=== PATIENT | female | born 1935 | race Caucasian/White ===

== ENCOUNTER 2017-02-16 18:14 | Inpatient (IN) ==
[2017-02-16] MEDS ORDERED: *HR* HYDROmorphone (PF) 1 MG/ML SYRINGE IVP ONE (18:20)
[2017-02-16] MEDS ORDERED: Ondansetron 4 MG/2 ML VIAL IVP ONE ×2 (18:20→20:29)
--- NOTE | 2017-02-16 18:29 | Emergency Department Note ---
Disposition Clinical Impression: Fracture of femur Qualifiers: Encounter type: initial encounter Femur location: shaft Fracture type: closed Fracture morphology: transverse Fracture alignment: displaced Laterality: right Qualified Code(s): S72.321A - Displaced transverse fracture of shaft of right femur, initial encounter for closed fracture Distal radius fracture, left Qualifiers: Encounter type: initial encounter Fracture type: closed Fracture morphology: other fracture Qualified Code(s): S52.592A - Other fractures of lower end of left radius, initial encounter for closed fracture Disposition: Admitted As Inpatient Condition: Good Forms: ED Satisfaction Letter Fall HPI - General Chief Complaint: ED Extremity Injury, Lower Stated Complaint: R leg Pain Time Seen by Provider: 02/16/17 18:20 Source: patient, EMS Mode of arrival: EMS Limitations: no limitations Nursing Notes Reviewed: Yes Vital Signs Reviewed: Yes - History of Present Illness Pt Subjective Complaint: fall 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 Denies: headache, neck pain, numbness - Related Data Home Medications Medication Instructions Recorded Confirmed Atenolol 12/14/16 12/14/16 Folic Acid 12/14/16 Methotrexate 12/14/16 Prednisone 12/14/16 12/14/16 Previous Rx's Medication Instructions Recorded Benzonatate [Tessalon] 200 mg PO TID PRN #30 capsule 12/14/16 DiphenhydraMINE [Benadryl] 25 mg PO Q8HR PRN #20 capsule 12/14/16 Doxycycline 100 mg PO BID #14 capsule 12/14/16 GuaiFENesin ER [Mucinex] 600 mg PO BID #20 tbbp.12hr 12/14/16 Doxycycline 100 mg PO BID #14 capsule 01/25/17 Allergies Allergy/AdvReac Type Severity Reaction Status Date / Time aspirin [ASA] Allergy See Verified 02/16/17 18:22 Comments Penicillins [PCN] Allergy See Verified 02/16/17 18:22 Comments All systems ED: reviewed and negative except as stated. Constitutional: Denies: fever Cardiovascular: Denies: chest pain Gastrointestinal: Denies: nausea, vomiting Fall PMH - Past Medical History Medical history: Reports: arthritis Surgical history: Reports: non-contributory Psychiatric history: Reports: no psych history SHEAR SCRAPMAN history: Reports: no SHEAR SCRAPMAN history - Social History Smoking Status: Never smoker Alcohol use: Reports: none Drug use: Reports: none Physical Exam - General Limitations: no limitations General appearance: in distress - Head Head exam: atraumatic, normocephalic, normal inspection - Eye Eye exam: Present: normal appearance, PERRL, EOMI - ENT ENT exam: normal exam, normal oropharynx, mucous membranes moist - Neck Neck exam: Present: normal inspection, full ROM, trachea midline - Chest Chest inspection: Present: normal inspection, symmetric chest wall rise - Respiratory Respiratory exam: Present: normal lung sounds bilaterally - Cardiovascular Cardiovascular exam: Present: regular rate, normal rhythm, normal heart sounds - Abdominal Exam Abdominal exam: Present: soft, Non-Tender. Absent: tenderness, distention, guarding, rebound, rigidity - Expanded Upper Extremity Exam Forearm/Wrist exam: Present: tenderness, swelling (distal left) - Expanded Lower Extremity Exam Upper leg exam: Present: deformity (obvious distal femur deformity) - Neurological Exam Neurological exam: Present: alert, oriented X3 - Psychiatric Psychiatric exam: Present: normal affect, normal mood - Skin Skin exam: Present: warm, dry, intact, normal color Course - Consultations Consultation #1: dr. ro will consult, right knee immobilizer admit to hospitalist service Time: 19:43 Vital Signs Pulse Rate 85 02/16/17 18:15 Respiratory Rate 20 02/16/17 18:15 Blood Pressure 178/109 02/16/17 18:15 O2 Sat by Pulse Oximetry 100 02/16/17 18:15 Temperature 98.6 F 02/16/17 18:18 Pulse Rate 77 02/16/17 19:01 Respiratory Rate 20 02/16/17 19:01 Blood Pressure 138/63 02/16/17 19:01 O2 Sat by Pulse Oximetry 99 02/16/17 19:01 Oxygen Delivery Oxygen Delivery Room Air Fall - Differential Diagnosis Likely: syncope, traumatic injury - Medical Records Medical records reviewed: Yes I reviewed the patient's medical records. - Lab Data Lab results reviewed: Yes I reviewed the patient's lab results. Result diagrams: 02/16/17 18:19 02/16/17 18:19 Lab Results 0502/16/17 02/16/17 Range/Units 18:19 18:19 18:19 WBC 8.4 (4.3-11.1) K/mcL RBC 3.76 L (3.82-4.97) M/mcL Hgb 11.9 (11.5-15.4) g/dL Hct 35.8 (35.3-44.9) % MCV 95.2 (83.0-100.0) fL MCH 31.6 (28.0-33.3) pg MCHC 33.2 (31.6-35.5) g/dL RDW 13.6 (11.5-14.5) % Plt Count 255 (140-400) K/mcL MPV 9.3 L (9.4-12.4) fL Immature Gran % 0.5 (0-4) % Seg Neutrophils % 54.4 % Lymphocytes % 34.3 % Monocytes % 8.9 % Eosinophils % 1.5 % Basophils % 0.4 % Neutrophils # 4.6 (1.6-8.9) K/mcL Lymphocytes # 2.9 (0.6-4.6) K/mcL Monocytes # 0.8 (0.0-1.3) K/mcL Eosinophils # 0.1 (0.0-0.6) K/mcL Basophils # 0.0 (0.0-0.2) K/mcL PT 10.6 (9.4-12.1) Seconds INR 1.0 Sodium 140 (136-145) mEq/L Potassium 3.5 (3.5-4.5) mEq/L Chloride 103 (98-109) mEq/L Carbon Dioxide 24 (19-29) mEq/L BUN 22 H (7-20) mg/dL Creatinine 0.96 (0.57-1.11) mg/dL Est GFR ( Amer) > 60 (> 60) Est GFR (Non-Af Amer) 56 L (> 60) BUN/Creatinine Ratio 23 (6-26) Glucose 106 H (70-99) mg/dL Calculated Osmolality 294 (280-300) Calcium 9.3 (8.6-10.8) mg/dL Blood Type Antibody Screen 02/16/17 Range/Units 18:19 WBC (4.3-11.1) K/mcL RBC (3.82-4.97) M/mcL Hgb (11.5-15.4) g/dL Hct (35.3-44.9) % MCV (83.0-100.0) fL MCH (28.0-33.3) pg MCHC (31.6-35.5) g/dL RDW (11.5-14.5) % Plt Count (140-400) K/mcL MPV (9.4-12.4) fL Immature Gran % (0-4) % Seg Neutrophils % % Lymphocytes % % Monocytes % % Eosinophils % % Basophils % % Neutrophils # (1.6-8.9) K/mcL Lymphocytes # (0.6-4.6) K/mcL Monocytes # (0.0-1.3) K/mcL Eosinophils # (0.0-0.6) K/mcL Basophils # (0.0-0.2) K/mcL PT (9.4-12.1) Seconds INR Sodium (136-145) mEq/L Potassium (3.5-4.5) mEq/L Chloride (98-109) mEq/L Carbon Dioxide (19-29) mEq/L BUN (7-20) mg/dL Creatinine (0.57-1.11) mg/dL Est GFR ( Amer) (> 60) Est GFR (Non-Af Amer) (> 60) BUN/Creatinine Ratio (6-26) Glucose (70-99) mg/dL Calculated Osmolality (280-300) Calcium (8.6-10.8) mg/dL Blood Type AB POSITIVE Antibody Screen NEGATIVE - Radiology Data Radiology results reviewed: Yes I reviewed the patient's radiology results.
[2017-02-16] MEDS ORDERED: *HR* FentaNYL (PF) 100 MCG/2 ML VIAL IVP ONE ×2 (18:39→20:29)
[2017-02-16 18:45] LABS: Basophils % 0.4 %; Eosinophils # 0.1 K/mcL (0.0-0.6); Eosinophils % 1.5 %; Hematocrit 35.8 % (35.3-44.9); Hemoglobin 11.9 g/dL (11.5-15.4); Immature Granulocytes % 0.5 % (0-4); Lymphocytes # 2.9 K/mcL (0.6-4.6); Lymphocytes % 34.3 %; Mean Corpuscular HGB Conc 33.2 g/dL (31.6-35.5); Mean Corpuscular Hemoglobin 31.6 pg (28.0-33.3); Mean Corpuscular Volume 95.2 fL (83.0-100.0); Mean Platelet Volume 9.3 fL (9.4-12.4); Monocytes # 0.8 K/mcL (0.0-1.3); Monocytes % 8.9 %; Neutrophils # 4.6 K/mcL (1.6-8.9); Platelet Count 255 K/mcL (140-400); Red Blood Count 3.76 M/mcL (3.82-4.97); Red Cell Distribution Width 13.6 % (11.5-14.5); Segmented Neutrophils % 54.4 %
[2017-02-16 18:48] LABS: Prothrombin Time 10.6 Seconds (9.4-12.1)
[2017-02-16 18:50] LABS: BUN/Creatinine Ratio 23 (6-26); Blood Urea Nitrogen 22 mg/dL (7-20); Calcium 9.3 mg/dL (8.6-10.8); Carbon Dioxide 24 mEq/L (19-29); Chloride 103 mEq/L (98-109); Glucose 106 mg/dL (70-99); Osmolality,Calculated 294 (280-300); Potassium 3.5 mEq/L (3.5-4.5); Sodium 140 mEq/L (136-145); eGFR For African Americans > 60 (> 60); eGFR For Non-African Americans 56 (> 60)
--- NOTE | 2017-02-16 20:24 | Orthopedic Consult Note ---
Date of Encounter: 02/17/17 Time of Encounter: 20:21 Assessment and Plan (1) Fracture of femur Current Visit: Yes Status: Acute Plan for surgery tomorrow with for Right femur nail fixation. NPO after midnight. Non-weightbear. Awaiting medical clearance. INR 1.0. Qualifiers: Encounter type: initial encounter Femur location: shaft Fracture type: closed Fracture morphology: transverse Fracture alignment: displaced Laterality: right Qualified Code(s): S72.321A - Displaced transverse fracture of shaft of right femur, initial encounter for closed fracture (2) Distal radius fracture, left Current Visit: Yes Status: Acute Place into sugar tong splint for immobilization. ICE and elevate. Ok to perform finger range of motion. Plan to have surgery tomorrow with for surgical fixation. Qualifiers: Encounter type: initial encounter Fracture type: closed Fracture morphology: other fracture Qualified Code(s): S52.592A - Other fractures of lower end of left radius, initial encounter for closed fracture History of Present Illness Chief complaint: Fall HPI: Ms. Taylor is a 81 year old female, sustained a mechanical fall today, unwitnessed at home. Fell onto her right side, causing a right displaced femur fracture, and a left distal radius fracture. She has a history of a right TKR. She has RA, on methotrexate and prednisone. Her pain is in her right leg, throbbing, burning pain. Pain radiates into lower leg. Unable to weight bear. She is in a immobilizer currently. She denies any pain in her left forearm, she is currently in a splint. She admits to have previous fracture in her left wrist last year. She denies N/T or radiation of pain. She is able to move her digits without restriction. Denies LOC or syncope. Denies N/T Past Med Surg Social Fam HX - Past Medical History Medical history: arthritis Psychiatric history: no psych history - Past Surgical History Surgical History: non-contributory - Social History Smoking Status: Never smoker Smokeless Tobacco Status: No Alcohol use: none Drug use: none Medications and Allergies Acetaminophen [Tylenol] 500 mg PO Q6HR PRN 02/16/17 [History] Ascorbate Calcium [Vitamin C] 500 mg PO DAILY 02/16/17 [History] Atenolol [Tenormin] 25 mg PO DAILY 02/16/17 [History] Cholecalciferol (D-3) [Vitamin D] 1,000 unit PO DAILY 02/16/17 [History] Folic Acid 1 mg PO DAILY 02/16/17 [History] Methotrexate [Otrexup] 20 mg PO WE 02/16/17 [History] predniSONE [PredniSONE] 5 mg PO BID 02/16/17 [History] Allergies Penicillins [PCN] Allergy (Unknown, Verified 02/16/17 20:51) See Comments Patient unsure of reaction- aspirin [ASA] Adverse Reaction (Unknown, Verified 02/16/17 20:51) Gastrointestinal Upset acetaminophen [From [place]] Adverse Reaction (Verified 02/16/17 20:51) Gastrointestinal Upset hydrocodone [From [place]] Adverse Reaction (Verified 02/16/17 20:51) Gastrointestinal Upset All Systems Reviewed: A 10-system review of systems was performed and is negative for pertinent findings except as documented above in the HPI. - Constitutional Constitutional: as per HPI, no fever(s), no frequent falls, no weakness - Cardiovascular Cardiovascular: no chest pain, no edema, no syncope - Respiratory Respiratory: no cough, no dyspnea, no dyspnea on exertion - Musculoskeletal Musculoskeletal: as per HPI, limited range of motion, radiating pain into limb, no abnormal gait, no joint swelling, no muscle weakness, no neck pain, no numbness, no tingling Physical Exam - Constitutional Vitals: Temp Pulse Resp BP Pulse Ox 98.6 F 84 18 151/79 92 02/16/17 18:18 02/16/17 20:12 02/16/17 20:12 02/16/17 20:12 02/16/17 20:12 - Fracture right femur Location of fracture: Right Femur - mid-shaft, proximal to TKR Appearance: swelling Compartments: soft Distal extremity neurovascularly intact: Yes Proximal joint involvement: No Distal joint involvement: No left arm Appearance: normal, swelling Compartments: soft Distal extremity neurovascularly intact: Yes Proximal joint involvement: No Distal joint involvement: No Results - Labs Result Diagrams: 02/17/17 04:10 02/17/17 04:10 Labs: Abnormal lab results RBC 3.76 M/mcL (3.82-4.97) L 02/16/17 18:19 MPV 9.3 fL (9.4-12.4) L 02/16/17 18:19 BUN 22 mg/dL (7-20) H 02/16/17 18:19 Est GFR (Non-Af Amer) 56 (> 60) L 02/16/17 18:19 Glucose 106 mg/dL (70-99) H 02/16/17 18:19 H & H 02/16/17 Range/Units 18:19 Hgb 11.9 (11.5-15.4) g/dL Hct 35.8 (35.3-44.9) % All other labs normal. XR/XR femur RT IMPRESSION: Angulated overriding right mid femoral shaft fracture. XR/XR forearm LT IMPRESSION: 1. Acute, minimally displaced distal 3rd left radial shaft fracture. 2. Associated dislocation of the distal radioulnar joint. 3. Deformity of the distal left radius is most consistent with a remote fracture. - Diagnostic results Wrist/Hand x-ray: report reviewed, image reviewed Hip x-ray: report reviewed, image reviewed Knee x-ray: report reviewed, image reviewed Consult Discharge Plan - Plan
[2017-02-16] MEDS ORDERED: *HR* HYDROmorphone 2 MG/ML SYRINGE IVP ONE (21:46)
[2017-02-16] MEDS ORDERED: Naloxone 0.4 MG/ML INJ IVP PRN (22:18)
[2017-02-16] MEDS ORDERED: *HR* Morphine 2 MG/ML SYRINGE IVP PRN (22:23)
--- NOTE | 2017-02-16 22:26 | Internal Med History&Physical ---
Date of Encounter: 02/16/17 Time of Encounter: 22:00 Assessment and Plan (1) Fracture of femur Current visit: Yes Status: Acute Pain relief. Orthopedic surgeon consulted and is expected to go for nailing tomorrow. Bed rest. NPO after midnight Qualifiers: Encounter type: initial encounter Femur location: shaft Fracture type: closed Fracture morphology: transverse Fracture alignment: displaced Laterality: right Qualified Code(s): S72.321A - Displaced transverse fracture of shaft of right femur, initial encounter for closed fracture (2) Distal radius fracture, left Current visit: Yes Status: Acute Sugar tong splint for immobilization. Orthopedic consult Qualifiers: Encounter type: initial encounter Fracture type: closed Fracture morphology: other fracture Qualified Code(s): S52.592A - Other fractures of lower end of left radius, initial encounter for closed fracture (3) Rheumatoid arthritis Current visit: Yes Status: Chronic Continue home medications Qualifiers: Rheumatoid arthritis location: unspecified site Rheumatoid factor presence : unspecified presence Qualified Code(s): M06.9 - Rheumatoid arthritis, unspecified (4) Lung crackles Current visit: Yes Status: Acute Suspect it is likely due to pulmonary fibrosis, in the context of rheumatoid arthritis. Will check BNP (no peripheral edema noted). (pt had pulmonary function tests done earlier this year with Dr Morris). Will obtain CXR. Internal Medicine - H&P: HPI Chief complaint: Fall; right thigh pain Admitted From: Emergency Dept Plans for Post Hospital Care: Transfer [facility] Facility History of present illness: Ms. Taylor is a 81 year old female with past medical history significant for rheumatoid arthritis, reports problems with her balance and fell down at home. She denies dizziness, chest pain, shortness of breath, headache, loss of consciousness associated with the fall. She could not get up and had to crawl to the phone. She reports severe pain in the right thigh. pain is 9-10/10, sharp, non-radiating and worse with movement. She was evaluated in the emergency department and was noted to have right femur fracture. She also has a left radius fracture. She was seen by ER / orthopedic surgeon and admitted to the hospitalist service for medical co-management. She is expected to go for right femur nail fixation tomorrow. She is placed on sugar tong splint for immobilization of the left forearm. Past Med Surg Social Fam HX - Past Medical History Medical history: arthritis, osteoporosis, RA Psychiatric history: no psych history - Past Surgical History Surgical History: cataract, hysterectomy, knee replacement - Social History Smoking Status: Never smoker Smokeless Tobacco Status: No Alcohol use: none Drug use: none - Additional Family History Additional family history: Family history is reviewed and non-contributory to current admission Internal Medicine - H&P: Meds Acetaminophen [Tylenol] 500 mg PO Q6HR PRN 02/16/17 [History] Ascorbate Calcium [Vitamin C] 500 mg PO DAILY 02/16/17 [History] Atenolol [Tenormin] 25 mg PO DAILY 02/16/17 [History] Cholecalciferol (D-3) [Vitamin D] 1,000 unit PO DAILY 02/16/17 [History] Folic Acid 1 mg PO DAILY 02/16/17 [History] Methotrexate [Otrexup] 20 mg PO WE 02/16/17 [History] predniSONE [PredniSONE] 5 mg PO BID 02/16/17 [History] Allergies Penicillins [PCN] Allergy (Unknown, Verified 02/16/17 20:51) See Comments Patient unsure of reaction- aspirin [ASA] Adverse Reaction (Unknown, Verified 02/16/17 20:51) Gastrointestinal Upset acetaminophen [From [place]] Adverse Reaction (Verified 02/16/17 20:51) Gastrointestinal Upset hydrocodone [From [place]] Adverse Reaction (Verified 02/16/17 20:51) Gastrointestinal Upset All Systems PM: A 10-system review of systems was performed and is negative for pertinent findings except as documented above in the HPI. - Constitutional Vitals: Temp Pulse Resp BP Pulse Ox 97.0 F L 75 16 166/92 97 02/16/17 21:36 02/16/17 21:36 02/16/17 21:36 02/16/17 21:36 02/16/17 21:36 Exam: General: In mild - moderate distress at the time of my evaluation HEENT: Oral mucosa is moist. No conjunctival palor or scleral icterus Neck: No obvious neck swellings Lungs: Bilateral basal crackles heard Cardiac: Regular rate and rhythm. No significant murmurs Abdomen: Soft, non tender. Bowel sounds present Genitourinary: No lorenzo catheter Neurological: Alert and oriented. No gross localizing deficits Psych: Not aggressive or agitated Extremities: no significant leg edema. Right leg is internally rotated Skin: No generalized rash Internal Med - H&P Results - Labs CBC & Chem 7: 02/16/17 18:19 02/16/17 18:19 - Impressions ITS Impressions Femur X-Ray 02/16/17 18:20 IMPRESSION: Angulated and overriding right mid femoral shaft fracture. D/ / 02/16/2017 19:07:18 Jayy Chand MD / lupe Interpreting Provider: Jayy Chand MD Forearm X-Ray 02/16/17 18:20 IMPRESSION: 1. Acute, minimally displaced distal 3rd left radial shaft fracture. 2. Associated dislocation of the distal radioulnar joint. 3. Deformity of the distal left radius is most consistent with a remote fracture. D/ / 02/16/2017 19:08:48 Jayy Chand MD / lupe Interpreting Provider: Jayy Chand MD
[2017-02-16] MEDS ORDERED: 0.9 % Sodium Chloride 1,000 ML IVC SCH (22:45)
[2017-02-16 23:10] LABS: Bilirubin,Urine Negative (Negative); Blood,Urine Small (Negative); Clarity,Urine Clear (Clear); Color,Urine Yellow (Yellow); Glucose,Urine (UA) Normal (Normal); Ketones,Urine 40 mg/dL (Negative); Leukocyte Esterase,Urine Negative (Negative); Nitrite,Urine Negative (Negative); PH,Urine 7.5 pH Units (5.0-8.0); Protein,Urine Trace mg/dL (Neg-Trace); Specific Gravity,Urine 1.017 (1.010-1.025); Urobilinogen,Urine Normal (Normal)
[2017-02-16 23:14] LABS: Bacteria,Urine None Seen per hpf (None-Few); Hyaline Casts,Urine None Seen per lpf (None-Few); Squamous Epithelial Cell,Urine Moderate per lpf (None-Few); WBC,Urine 0-3 per hpf (0-3)
[2017-02-16] MEDS: Ondansetron 4 MG/2 ML VIAL IVP PRN (23:35)
[2017-02-17 04:44] LABS: Hemoglobin 11.9 g/dL (11.5-15.4); Mean Corpuscular HGB Conc 33.1 g/dL (31.6-35.5); Mean Corpuscular Hemoglobin 31.6 pg (28.0-33.3); Mean Corpuscular Volume 95.5 fL (83.0-100.0); Mean Platelet Volume 9.3 fL (9.4-12.4); Platelet Count 223 K/mcL (140-400); Red Blood Count 3.77 M/mcL (3.82-4.97); Red Cell Distribution Width 13.5 % (11.5-14.5)
[2017-02-17 04:57] LABS: BUN/Creatinine Ratio 23 (6-26); Blood Urea Nitrogen 17 mg/dL (7-20); Calcium 8.5 mg/dL (8.6-10.8); Carbon Dioxide 21 mEq/L (19-29); Chloride 102 mEq/L (98-109); Glucose 139 mg/dL (70-99); Osmolality,Calculated 286 (280-300); Potassium 4.2 mEq/L (3.5-4.5); Sodium 136 mEq/L (136-145); eGFR For African Americans > 60 (> 60); eGFR For Non-African Americans > 60 (> 60)
[2017-02-17] MEDS: *HR* HYDROmorphone (PF) 1 MG/ML SYRINGE IVP PRN ×3 (07:05→13:43)
[2017-02-17] MEDS ORDERED: Folic Acid 1 MG TABLET PO SCH (10:00)
[2017-02-17] MEDS: Ondansetron 4 MG/2 ML VIAL IVP PRN (10:38)
--- NOTE | 2017-02-17 11:45 | Electrocardiograph Report ---
[place] [id number] Test Date: 2017-02-16 Pat Name: Annette Taylor Department: 114 Room: [facility] Gender: F Business Development Agent: MARTÍNEZ : 1935 Requested By: Nahed Wisdom Order Number: [id number] Reading MD: El Hodgson MD Measurements Intervals [place] Rate: 77 P: 67 NV: 184 QRS: -12 QRSD: 85 T: 11 QT: 398 QTc: 429 Interpretive Statements SINUS RHYTHM Electronically Signed On 02-17-2017 11:43:41 EDT by El Hodgson MD
[2017-02-17] MEDS ORDERED: *HR* HYDROmorphone 2 MG/ML SYRINGE ONE (13:11)
[2017-02-17] MEDS ORDERED: *HR* Propofol 200 MG/20 ML VIAL IVP ONE (13:12)
[2017-02-17] MEDS ORDERED: Lidocaine -MPF 2% 2 ML VIAL ONE (13:12)
[2017-02-17] MEDS ORDERED: *HR* Midazolam HCl 2 MG/2 ML VIAL ONE (13:12)
[2017-02-17] MEDS ORDERED: *HR* FentaNYL (PF) 100 MCG/2 ML VIAL ONE (13:12)
--- NOTE | 2017-02-17 13:12 | Anesthesia Evaluation PreOp ---
Date of Encounter: 02/17/17 Time of Encounter: 13:00 - Past History Planned Operation: Rt Femur ORIF, Left Radius ORIF Cardiac History: Denies any Significant Hx Pulmonary History: Denies Any Significant HX UPSETTER History: Denies Any Significant HX Other Medical History: Other (Rheumatoid Arthritis) Anesthesia History: No Prior Anesthetic Complications : No (Hysterectomy) Alcohol Use: none Drug use: none Medications and Allergies Acetaminophen [Tylenol] 500 mg PO Q6HR PRN 02/16/17 [History] Ascorbate Calcium [Vitamin C] 500 mg PO DAILY 02/16/17 [History] Atenolol [Tenormin] 25 mg PO DAILY 02/16/17 [History] Cholecalciferol (D-3) [Vitamin D] 1,000 unit PO DAILY 02/16/17 [History] Folic Acid 1 mg PO DAILY 02/16/17 [History] Methotrexate [Otrexup] 20 mg PO WE 02/16/17 [History] predniSONE [PredniSONE] 5 mg PO BID 02/16/17 [History] Allergies Penicillins [PCN] Allergy (Unknown, Verified 02/16/17 20:51) See Comments Patient unsure of reaction- aspirin [ASA] Adverse Reaction (Unknown, Verified 02/16/17 20:51) Gastrointestinal Upset acetaminophen [From [place]] Adverse Reaction (Verified 02/16/17 20:51) Gastrointestinal Upset hydrocodone [From [place]] Adverse Reaction (Verified 02/16/17 20:51) Gastrointestinal Upset - Meds/Allergy Pre-op Review Medications Reviewed: Yes Allergies Reviewed: Yes Beta Blockers on Current Med List: Yes Anesthesia Results - Labs 02/17/17 04:10 02/17/17 04:10 - Imaging EKG: report reviewed (SR) Anesthesia Exam O2 Sat Height 1.63 m Height 1.63 m Weight 58.5 kg Weight 56.699 kg O2 Sat by Pulse Oximetry 98 O2 Sat by Pulse Oximetry 100 O2 Sat by Pulse Oximetry 93 O2 Sat by Pulse Oximetry 94 O2 Sat by Pulse Oximetry 95 O2 Sat by Pulse Oximetry 97 O2 Sat by Pulse Oximetry 92 O2 Sat by Pulse Oximetry 99 O2 Sat by Pulse Oximetry 100 O2 Sat by Pulse Oximetry 99 O2 Sat by Pulse Oximetry 100 Vital Signs Pulse Resp BP Pulse Ox 85 20 178/109 100 02/16/17 18:15 02/16/17 18:15 02/16/17 18:15 02/16/17 18:15 Height: 5'4 Weight: 128 lbs NPO (# of Hours): MN Pain Scale: 0 - HEENT Pupil (Motor): Pupils equal, EOMI Teeth: Normal Oral Opening: Greater than 3 - UPSETTER LOC: Oriented UPSETTER Motor: Normal RUE, Normal LUE, Normal RLE, Normal LLE, Normal Face UPSETTER Sensory: Normal: RUE, LUE, RLE, LLE, Face - Cardiac Rhythm: Regular Murmur: None JVD: No Carotid Bruit: No - Pulmonary Breath Sounds: bilateral Clear Respiratory Effort: Symmetrical Anesthesia Assess/Plan ASA Score: 2 Modified Ila Scale for Level of Consciousness: Cooperative, oriented, and tranquil Anesthetic Plan: General, Regional Monitoring Plan: Standard Monitors Recovery Plan: PACU (Discussed RA and GA, agrees to proceed)
[2017-02-17] MEDS ORDERED: *HR* Phenylephrine 10 MG/ML VIAL ONE (13:19)
[2017-02-17] MEDS ORDERED: Tetracaine/PF 20 MG/2 ML AMPUL ONE (14:31)
[2017-02-17] MEDS ORDERED: ROPIVACAINE HCL/PF 0.5% 30 ML VIAL ONE (14:31)
[2017-02-17] MEDS ORDERED: Clindamycin 900 MG/50 ML 900 MG/50 ML IV.SOLN IVPB ONE (14:46)
[2017-02-17] MEDS ORDERED: Bupivacaine/Clonidine Syringe 1 EACH SYRINGE ONE (14:48)
--- NOTE | 2017-02-17 15:08 | Anesthesia Procedures ---
Date of Encounter: 02/17/17 Time of Encounter: 13:10 Procedures: Anesthesia - Nerve Block Procedure Date: 02/17/17 Time: 14:50 Pre-op Diagnosis: Fracture Left Radius/Rt Femur Surgical Procedure: ORIF Left Wrist,Rt Femur Checklist: Correct Patient Identifier Correct side: Right (Femur) Blood Thinner: No Monitor Applied: EKG, BP, Pulse Oximetry Supplemental Oxygen via Nasal Cannula (L/min): 2 Sedation: Versed (mg): 1 Indication: Post Op Analgesia Pre-op Neuro Deficits: No Block Type: Femoral, Supraclavicular Catheter placed: No Depth at skin (cm): 2 Sterile Technique: Yes Ultrasound used: Yes Anatomy identified: Yes Visual spread of Local: Yes Neuro Stimulation: No Blood on Needle Aspiration: No Smooth Injection of Local: Yes Pain with Injection of Local: No Prep: Chlorhexadine Needle: 22 x 50 mm Stimuplex Local: 0.25% Bupivicaine w/Clonidine 20 mcg/cc, Tetracaine (20 mg), Ropivacaine (0.5%) Volume (cc): 20ccRopi/40cc Bupi Number of Attempts: 1 Complications: None/effective block
[2017-02-17] MEDS ORDERED: EPHEDrine 50 MG/ML VIAL ONE ×2 (15:43→19:05)
[2017-02-17] MEDS ORDERED: *HR* Promethazine 25 MG/ML VIAL IVP PRN (16:40)
[2017-02-17] MEDS ORDERED: *HR* HYDROmorphone (PF) 1 MG/ML SYRINGE IVP PRN ×2 (16:40→21:28)
--- NOTE | 2017-02-17 17:04 | Event Note ---
<Mariely Begum C - Last Filed: 02/17/17 17:01> Date of Encounter: 02/17/17 Time of Encounter: 13:00 Discussed with patient that her fractures will require surgical fixation. The left radial shaft fx will require ORIF and right femur shaft fx will require IM nailing. I discussed the procedure as well as r/b/a and patient expressed understanding. All questions answered. Consent was signed and placed in chart. Plan for surgery of both today. She has been NPO since midnight. <Michael Esqueda - Last Filed: 02/17/17 19:21> Date of Encounter: 02/17/17 I met with the patient properly on the floor and discuss the procedure. We also discussed the fact that she has a left distal radius malunion. She also has severe ulnar impaction. The patient states that her wrist did not bother prior to the fall. These will not be corrected at this time, only the radial shaft fracture.
[2017-02-17] MEDS ORDERED: *HR* Heparin 5,000 UNIT/ML VIAL SQ SCH (18:00)
--- NOTE | 2017-02-17 18:30 | Internal Med Progress Note ---
Date of Encounter: 02/17/17 Time of Encounter: 10:30 - Assessment and plan (1) Fracture of shaft of right femur Current Visit: Yes Status: Acute Assessment and plan: Appreciate orthopedic service input. Plan for surgery today. Continue pain control with opiates. Qualifiers: Encounter type: initial encounter Fracture type: closed Fracture morphology: other fracture Qualified Code(s): S72.391A - Other fracture of shaft of right femur, initial encounter for closed fracture (2) Fracture of shaft of left radius Current Visit: Yes Status: Acute Assessment and plan: Appreciate orthopedic service input. Plan for surgery today. Continue pain medication and IV fluids. Qualifiers: Encounter type: initial encounter Fracture type: closed Fracture morphology: other fracture Qualified Code(s): S52.392A - Other fracture of shaft of radius, left arm, initial encounter for closed fracture (3) Rheumatoid arthritis Current Visit: Yes Status: Chronic Assessment and plan: Continue home medications. Qualifiers: Rheumatoid arthritis location: multiple sites Rheumatoid factor presence: unspecified presence Qualified Code(s): M06.9 - Rheumatoid arthritis, unspecified - Subjective Interval history: patient reports moderate pain in right hip. - Constitutional Vitals: Temp Pulse Resp BP Pulse Ox 98.4 F 78 16 136/72 97 02/17/17 10:55 02/17/17 15:21 02/17/17 15:21 02/17/17 15:21 02/17/17 15:21 General appearance: Present: cooperative, A&O X 3, pleasant, no acute distress, answers questions appropriately - Neck Neck exam general surgery: Present: supple, trachea midline. Absent: lymphadenopathy - Respiratory Respiratory exam: Present: CTAB - Cardiovascular Cardiovascular exam: Present: RRR - GI/Abdominal GI/Abdominal exam: Present: normal bowel sounds, soft. Absent: distended, tenderness - Extremities Exam Extremities exam: Absent: pedal edema - Neurological Exam Neurological exam: Present: alert, oriented X3, no focal deficits. Absent: facial droop, speech deficit Internal Medicine: Result - Labs CBC & Chem 7: 02/17/17 04:10 02/17/17 04:10 Labs: Short CBC 02/17/17 Range/Units 04:10 WBC 9.3 (4.3-11.1) K/mcL Hgb 11.9 (11.5-15.4) g/dL Hct 36.0 (35.3-44.9) % Plt Count 223 (140-400) K/mcL BMP 02/17/17 04:10 Sodium 136 Potassium 4.2 Chloride 102 Carbon Dioxide 21 BUN 17 Creatinine 0.74 Glucose 139 H Calcium 8.5 L Urine 02/16/17 Range/Units 22:50 Urine Color Yellow (Yellow) Urine Clarity Clear (Clear) Urine pH 7.5 (5.0-8.0) pH Units Ur Specific Hague 1.017 (1.010-1.025) Urine Protein Trace (Neg-Trace) mg/dL Urine Glucose (UA) Normal (Normal) mg/dL - ABG Interpretation ABG results: PT/INR, D-dimer PT 10.6 Seconds (9.4-12.1) 02/16/17 18:19 - Impressions Impressions Chest X-Ray 02/16/17 22:22 IMPRESSION: No significant findings in the chest. D/ / Jose Bone MD / Jose Bone MD Interpreting Provider: Jose Bone MD Consult Discharge Plan - Plan Instructions: Laparoscopic Tubal Ligation (DC) Additional Instructions: Home Medication List * You have been given a list of your current medications. If you have changes in your medications, update your list. * Provide a list of current medications to your primary care physician. * Carry a copy of your current medications with you in case of an emergency. Referrals: Timmy Qiu MD [Primary Care Provider] - 05/14/17 8:45 am
--- NOTE | 2017-02-17 19:31 | Operative Note ---
Date of procedure: 02/17/17 Pre-op diagnosis: Right femur midshaft fracture. Left forearm distal radial shaft fracture, Post-op diagnosis: same (Right femur displaced midshaft fracture, with total knee arthroplasty implants in place. Left forearm distal radial shaft fracture , left distal radius malunion and ulnar impaction.) Procedure: Right femur intramedullary nailing of fracture. Left forearm open reduction internal fixation of radial shaft fracture. Implants: Reji trochanteric femoral nail Reji Variax 3.5 mm compression plate Anesthesia: TARA, regional Surgeon: Michael Esqueda Estimated blood loss (cc): 200 Tourniquet Time (Minutes): 41 (Left upper extremity) Specimen: 0 Condition: stable Disposition: PACU Procedure in Detail: The patient received IV antibiotics in the holding area. She received an extra block to the left upper extremity and a femoral brought to the right lower extremity. She was brought to the operating room, sign in was performed. The patient underwent general anesthesia on the hospital bed. She was then transferred to the fracture table in supine position. The patient was positioned with the support groin post, the affected right lower extremity in the traction velazquez and the contralateral lower extremity in a well-padded limb velazquez with a hip flexed and abducted out of the way. Fluoroscopy was then brought in, the fractures visualized, and the fracture reduced. This was a midshaft fracture two thirds of the way down. The total knee implant small to be intact. A Bourbon trochanteric femoral nail would be used. Once satisfactory the right hip, from the pelvis down to below the knee, was prepped and draped in usual sterile fashion. A timeout was performed. The level of the greater trochanter was palpated, a 4-5 cm oblique incision was made just proximally, , followed by Bovie dissection. The patient had a deep subcutaneous fat layer. The hip abductor was sharply split in line with its fibers with a curved Tilley scissors. The tip of the greater trochanter was palpable. A curved awl was then positioned on the tip. Its position was checked on fluoroscopy, slightly advanced, and we checked the lateral view. Once appropriately positioned, the awl was then used to open the proximal femur down to level of the lesser trochanter. A guidewire was inserted down the awl, across the fracture site, and driven down to the distal femur. Then measured the length of the guidewire. It was decided to use a 360 mm long nail. I started reaming with a 9 mm reamer up to 12 mm with decent chatter, next a 12.5, 13 and stopped at 13.5 mm with good chatter. Reamings was performed holding the fracture reduced. A 360 mm long nail 12 mm diameter, was assembled , and appropriately inserted into the proximal femur. The nails intact down to the fracture site level. The fracture was held reduced and the nail tapped across the fracture while holding reduction. This checked in AP and lateral views. The nail was tapped down towards in the ending just within the femoral knee component. I then checked position of the nail of the hip. It was decided to lock the nail distally first, to compress it later. The technique of perfect circles was used. The position of the most proximal hole was noted, a 1 cm stab incisions made, drilled across through the nail to the medial side of the femur, measured, and the appropriate length bicortical 5 mm screw was placed. I placed a second lateral to medial through the oblong hole, at the distal end in standard technique. When checking on the AP view, screws were not across. The second screw was driven across. The fit screw with difficulty extending it. A longer screw was chosen. It appeared that the nail moved slightly, and had to redrill the far cortex to seat the initial screw. Next going proximally I placed a triple trocar through the compression hole in the radial single guide. Once again set technique appropriate length 5 mm screw was placed. Traction was then taken off the leg, before the fracture with the compressed. When checking an AP view of the mid femur, the fracture was in varus deformity. Somehow the nail moved in the distal femur. The distal screws were removed. The fracture was still reducible. A crutch was placed from the medial side of the thigh, assisting in reduction. I considered placing a polar blocking screw in an AP direction, but this area was draped out. I then drilled a new screw hole in the most distal hole in the nail using perfect circles technique and placed another 5 mm screw from lateral to medial across the condyles. The 2 initial screws were then replaced. The most proximal screw was in getting into the shaft somewhat, was backed up. A washer was unavailable. Checking on fluoroscopy, the fracture but much better aligned in AP and lateral views. With him back proximally, and then placed the compression screw transit driver through the top the nail and compress the fracture. This was checked in the fluoroscopy, showed good Compression. A static locking screws and placed the distal static hole through the jig and set technique. Once in place, the compression screw was then removed. The jig handle was then removed. The nail was sunk in the tip. A 10 mm end cap was then placed set technique bringing the level just below the tip of the greater trochanter. Final fluoroscopy shots were taken and saved showing good AP and lateral views of the hip, mid femur and also distally at the tip of the nail. The wounds were irrigated with normal saline. Fascia over the abductors was closed with 1 Vicryl [id number] stitches, including the deep subcutaneous fat layer. Subcutaneous tissues were closed with 2-0 Vicryl, and the skin incisions were closed with dm. Sterile dressings were applied. While my assistant director was closing the skin level and putting on dressings, I moved over to the left forearm. The left upper extremity was placed on a hand table. A tourniquet was present on the arm close to the axilla and upper extremity was then prepped and draped in usual sterile fashion. A timeout was performed again. The left upper extremity was then elevated, exsanguinated with an Gt wrap, and the tourniquet was raised to a pressure of 250 mmHg The fluoroscopy unit was brought in and identified the fracture level, it was a distal third fracture of the radial shaft transverse type. Also noted is significant distal radius malunion, dorsally angulated with significant ulnar impaction. An 8 cm long usual incision made over the volar radial aspect of the forearm centered over the fracture site. The incision was made directly over the FCR tendon sheath was split down the midline. The tendon was retracted over medially, the radial artery was mobilized and retracted over radially. Next, the distal end of the FPL origin was elevated sharply off the volar radial shaft, exposing the fracture site. Hohmann retractors were used to provide exposure. The fracture was cleaned up with a curette, lion jaw clamps were then used to control the fracture and reduce it, getting it to chavez together well. We used a 6 hole locking 3.5 mm plate centered over the fracture site, place, and the volar surface of the radial shaft. The plate ended distally in the metaphyseal region just at the takeoff of the malunion. The plate was secured with a cortical screw in hole #5. An eccentrically drill hole was made in hole #3 with a bicortical screw was placed that compressed the fracture site. A locking screw was then placed distally in hole #6. Next, another eccentric hole was drilled at #2. This screw was tightened down partially. The screw hole #2 was backed off slightly. We then tightened the screw hole #3 with down to provide further compression and next retightened the screw #2. A locking screw was placed in standard technique at hole #1, followed by a final locking screw in hole #4. It was noted the patient's bones were very thin, a couple of the screws did not get very good purchase. Bourbon DBM/cancellus bone putty was packed around the fracture site. Fluoroscopy was used to confirm appropriate alignment, good fracture compression and checked the length of screws. Any screws that were too long were changed out. 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 The wound was copiously irrigated with normal saline. The proximal end of the pronator quadratus and the distal end of the FPL muscle belly were tacked back down with 3-0 Vicryl [id number] sutures. The tourniquet was deflated, once again irrigating the wound with normal saline and obtaining hemostasis with the bipolar electrocautery the skin was then closed with 5-0 nylon horizontal mattress and simple sutures. Sterile dressings were applied. The patient was placed into a sugar tong splint. The right femur was then placed into T scope brace She was transferred to hospital bed where she was extubated and taken to recovery room in stable condition.
[2017-02-17] MEDS ORDERED: predniSONE 5 MG TABLET PO SCH (21:00)
--- NOTE | 2017-02-17 21:01 | Anesthesia Evaluation Post Op ---
Date of Encounter: 02/17/17 Time of Encounter: 21:00 - Vital Signs Vital Signs: Vital Signs/O2 Sat/Glucose, Most Current Temp Pulse Resp BP Pulse Ox 02/17/17 20:46 82 16 136/80 94 02/17/17 20:36 98.0 F 81 16 133/78 94 02/17/17 20:26 82 16 135/80 94 02/17/17 20:16 82 16 136/81 94 02/17/17 20:06 98.0 F 84 16 128/82 95 02/17/17 19:56 81 16 143/83 96 02/17/17 19:46 82 16 135/73 96 02/17/17 19:36 97.8 F 87 16 131/69 95 - Lungs Lungs: Clear Ascult./Percussion - Airway Airway: Non-obstructed - Cardiovascular Regular Rate - Mental Status Mental Status: Alert & Oriented, Answers Appropriately - Pain Pain Scale: 0 - Nausea Vomiting Nausea Vomiting: Not Present - Hydration Hydration: Tolerates oral liquids - Discharge PostOp Status: Transfer Patient to floor
[2017-02-17] MEDS ORDERED: Naloxone 0.4 MG/ML INJ IVP PRN (21:28)
[2017-02-17] MEDS ORDERED: traMADol 50 MG TABLET PO PRN (21:28)
[2017-02-17] MEDS ORDERED: Sennosides 8.6 MG TABLET PO PRN (21:28)
[2017-02-17] MEDS ORDERED: Ondansetron 4 MG/2 ML VIAL IVP PRN (21:28)
[2017-02-17] MEDS ORDERED: D5% in 0.45% NACL 1,000 ML IVC SCH (21:28)
[2017-02-17] MEDS: Clindamycin 900 MG/50 ML 900 MG/50 ML IV.SOLN IVPB SCH (23:11)
[2017-02-18] MEDS: *HR* Enoxaparin 30 MG/0.3 ML SYRINGE SQ SCH ×3 (03:04→19:00)
[2017-02-18] MEDS: Clindamycin 900 MG/50 ML 900 MG/50 ML IV.SOLN IVPB SCH (04:42)
[2017-02-18 05:58] LABS: Hematocrit 29.3 % (35.3-44.9); Immature Granulocytes % 0.2 % (0-4); Lymphocytes # 0.7 K/mcL (0.6-4.6); Lymphocytes % 7.4 %; Mean Corpuscular HGB Conc 33.1 g/dL (31.6-35.5); Mean Corpuscular Volume 96.7 fL (83.0-100.0); Monocytes # 1.1 K/mcL (0.0-1.3); Monocytes % 12.4 %; Neutrophils # 7.2 K/mcL (1.6-8.9); Platelet Count 225 K/mcL (140-400); Red Blood Count 3.03 M/mcL (3.82-4.97); Red Cell Distribution Width 13.5 % (11.5-14.5)
[2017-02-18 06:12] LABS: BUN/Creatinine Ratio 23 (6-26); Blood Urea Nitrogen 19 mg/dL (7-20); Calcium 8.2 mg/dL (8.6-10.8); Carbon Dioxide 23 mEq/L (19-29); Chloride 103 mEq/L (98-109); Glucose 142 mg/dL (70-99); Magnesium 1.5 mg/dL (1.6-2.6); Osmolality,Calculated 285 (280-300); Potassium 4.5 mEq/L (3.5-4.5); Sodium 135 mEq/L (136-145); eGFR For African Americans > 60 (> 60); eGFR For Non-African Americans > 60 (> 60)
[2017-02-18 06:20] LABS: Hemoglobin 9.7 g/dL (11.5-15.4)
[2017-02-18 06:57] LABS: Platelet Estimate Normal (Normal)
[2017-02-18] MEDS ORDERED: Magnesium Sulfate 1 GM in D5% in Water 100 ML IVPB ONE (07:53)
[2017-02-18] MEDS ORDERED: Clindamycin 900 MG/50 ML 900 MG/50 ML IV.SOLN IVPB SCH (08:00)
[2017-02-18] MEDS: predniSONE 5 MG TABLET PO SCH ×2 (08:13→20:00)
[2017-02-18] MEDS: Folic Acid 1 MG TABLET PO SCH (08:13)
[2017-02-18] MEDS: *HR* OxyCODONE Immed Rel 5 MG TABLET PO PRN (09:18)
[2017-02-18] MEDS ORDERED: *HR* Methotrexate 2.5 MG TABLET PO SCH ×2 (09:57)
--- NOTE | 2017-02-18 13:04 | Orthopedics Progress Note ---
Date of Encounter: 02/18/17 Time of Encounter: 12:30 - Assessment and Plan (1) Fracture of shaft of right femur Current Visit: Yes Status: Acute POD#1 s/p right femur IM nailing knee brace to be locked in extension. No knee flexion. NWB to RLE Pain control per hospitalist. Will likely need ECF placement upon discharge. Will follow up with Mariely Begum PA-C in [facility] office on 02/25/17 at 10:00 am. Qualifiers: Encounter type: initial encounter Fracture type: closed Fracture morphology: other fracture Qualified Code(s): S72.391A - Other fracture of shaft of right femur, initial encounter for closed fracture (2) Fracture of shaft of left radius Current Visit: Yes Status: Acute POD#1 s/p left radial shaft ORIF splint and sling to be left in place until follow up in office Continue to ice and elevate LUE. Continue ROM of fingers. NWB to LUE. Pain control per hospitalist. Will follow up with Mariely Begum PA-C in [facility] office on 02/25/17 at 10:00 am. Qualifiers: Encounter type: initial encounter Fracture type: closed Fracture morphology: other fracture Qualified Code(s): S52.392A - Other fracture of shaft of radius, left arm, initial encounter for closed fracture Subjective Principal diagnosis: POD#1 s/p right femur IM nailing, left radial shaft ORIF Interval history: Patient doing well today with no events overnight. States she has some pain in her left wrist but no pain in her right hip. Denies any numbness to extremities. Denies any calf pain. States therapy did have her up and working with her today. Objective Vital signs: Vital Signs Temp Pulse Resp BP Pulse Ox 02/18/17 11:09 98 F 80 16 107/65 98 02/18/17 08:24 96 02/18/17 06:38 83 96 02/18/17 06:00 97.8 F 81 18 105/66 99 02/18/17 03:00 98 F 81 18 101/58 98 02/18/17 00:35 84 18 105/64 98 02/17/17 23:30 87 18 114/64 99 02/17/17 22:30 97.7 F 88 18 118/72 99 02/17/17 21:35 97.6 F 89 18 136/77 99 02/17/17 21:13 97.6 F 91 18 129/82 100 02/17/17 21:06 98.1 F 85 16 125/77 94 02/17/17 20:56 90 16 123/79 94 02/17/17 20:46 82 16 136/80 94 02/17/17 20:36 98.0 F 81 16 133/78 94 02/17/17 20:26 82 16 135/80 94 02/17/17 20:16 82 16 136/81 94 02/17/17 20:06 98.0 F 84 16 128/82 95 02/17/17 19:56 81 16 143/83 96 02/17/17 19:46 82 16 135/73 96 02/17/17 19:36 97.8 F 87 16 131/69 95 02/17/17 15:21 78 16 136/72 97 02/17/17 15:20 74 16 150/84 96 Intake and Output 02/17/17 02/18/17 02/18/17 23:59 07:59 15:59 Intake Total 0 / 0 0 / 0 514 / 514 Output Total 300 / 300 Balance -300 / -300 0 / 0 514 / 514 Intake: IV Fluids 514 / 514 D5% And 0.45% Nacl 1000 364 / 364 Ml Bag 1,000 ML @ 75 mls/ hr IVC .[id number] [facility] Rx#: [id number] Cleocin Premix 900 MG/50 50 / 50 ML 900 mg In 50 ml @ 50 mls/hr IVPB Q8HR [facility] Rx#: [id number] Magnesium Sulfate 1 GM In 100 / 100 Dextrose 5% 100 ML @ 100 mls/hr IVPB ONCE ONE Rx# :[id number] Oral 0 / 0 0 / 0 Output: Urine 0 / 0 Estimated Blood Loss 200 / 200 Urine Amount (Catheter) 100 / 100 Incision: clean and dry (dressings c/d/i with no visible drainage. Splint and sling intact to LUE, brace locked in extension to right knee. No calf pain, good dorsiflexion of foot, good finger ROM, NV intact.) - Labs CBC & BMP: 02/18/17 04:58 02/18/17 04:58 Labs: Abnormal lab results RBC 3.03 M/mcL (3.82-4.97) L 02/18/17 04:58 Hgb 9.7 g/dL (11.5-15.4) L D 02/18/17 04:58 Hct 29.3 % (35.3-44.9) L 02/18/17 04:58 Sodium 135 mEq/L (136-145) L 02/18/17 04:58 Glucose 142 mg/dL (70-99) H 02/18/17 04:58 Calcium 8.2 mg/dL (8.6-10.8) L 02/18/17 04:58 Magnesium 1.5 mg/dL (1.6-2.6) L 02/18/17 04:58 B-Natriuretic Peptide 181 pg/mL (0-100) H 02/17/17 04:10 Urine Ketones 40 mg/dL (Negative) H 02/16/17 22:50 Urine Blood Small (Negative) H 02/16/17 22:50 Urine Microscopic RBC 3-5 per hpf (0-3) H 02/16/17 22:50 Ur Squamous Epith Cells Moderate per lpf (None-Few) H 02/16/17 22:50 - VTE Documentation of Mechanical Device: Intermittent pneumatic compression device Consult Discharge Plan - Plan Instructions: Laparoscopic Tubal Ligation (DC) Additional Instructions: Home Medication List * You have been given a list of your current medications. If you have changes in your medications, update your list. * Provide a list of current medications to your primary care physician. * Carry a copy of your current medications with you in case of an emergency. Referrals: Timmy Qiu MD [Primary Care Provider] - 05/14/17 8:45 am
--- NOTE | 2017-02-18 15:32 | Internal Med Progress Note ---
Date of Encounter: 02/18/17 Time of Encounter: 13:00 - Assessment and plan (1) Fracture of shaft of right femur Current Visit: Yes Status: Acute Assessment and plan: Patient underwent right femur IM nailing. Appreciate orthopedic service input. knee brace to be locked in extension. NWB to RLE. PT/OT. social media content manager consulted for rehab. Continue pain control with oral opiates. Qualifiers: Encounter type: initial encounter Fracture type: closed Fracture morphology: other fracture Qualified Code(s): S72.391A - Other fracture of shaft of right femur, initial encounter for closed fracture (2) Fracture of shaft of left radius Current Visit: Yes Status: Acute Assessment and plan: Patient underwent left radial shaft ORIF. Appreciate orthopedic service input. Continue pain medication. Qualifiers: Encounter type: initial encounter Fracture type: closed Fracture morphology: other fracture Qualified Code(s): S52.392A - Other fracture of shaft of radius, left arm, initial encounter for closed fracture (3) Acute blood loss anemia Current Visit: Yes Status: Acute Assessment and plan: secondary to right femur fracture. hgb is 9.7 from 11.9. close monitor of hgb. pt is hemodynamically stable. (4) Rheumatoid arthritis Current Visit: Yes Status: Chronic Assessment and plan: Continue home medications. Qualifiers: Rheumatoid arthritis location: multiple sites Rheumatoid factor presence: unspecified presence Qualified Code(s): M06.9 - Rheumatoid arthritis, unspecified - Subjective Interval history: patient reports pain is well controlled with pain medications. - Constitutional Vitals: Temp Pulse Resp BP Pulse Ox 98.4 F 76 18 104/68 96 02/18/17 15:01 02/18/17 15:01 02/18/17 15:01 02/18/17 15:01 02/18/17 15:01 General appearance: Present: cooperative, A&O X 3, pleasant, no acute distress, answers questions appropriately - Neck Neck exam general surgery: Present: supple, trachea midline. Absent: lymphadenopathy - Respiratory Respiratory exam: Present: CTAB - Cardiovascular Cardiovascular exam: Present: RRR - GI/Abdominal GI/Abdominal exam: Present: normal bowel sounds, soft. Absent: distended, tenderness - Extremities Exam Extremities exam: Absent: pedal edema Additional comments: right knee brace. left arm in sling - Back Exam Back exam: Absent: CVA tenderness (L), CVA tenderness (R) - Neurological Exam Neurological exam: Present: alert, oriented X3, no focal deficits. Absent: facial droop, speech deficit Internal Medicine: Result - Labs CBC & Chem 7: 02/18/17 04:58 02/18/17 04:58 Labs: Short CBC 02/18/17 Range/Units 04:58 WBC 9.0 (4.3-11.1) K/mcL Hgb 9.7 L D (11.5-15.4) g/dL Hct 29.3 L (35.3-44.9) % Plt Count 225 (140-400) K/mcL Neutrophils # 7.2 (1.6-8.9) K/mcL BMP 02/18/17 04:58 Sodium 135 L Potassium 4.5 Chloride 103 Carbon Dioxide 23 BUN 19 Creatinine 0.84 Glucose 142 H Calcium 8.2 L - ABG Interpretation ABG results: PT/INR, D-dimer PT 10.6 Seconds (9.4-12.1) 02/16/17 18:19 - Impressions Impressions Fluoroscopy 02/17/17 15:55 IMPRESSION: Intraprocedural fluoroscopic spot images as above. See separate procedure report for more information. D/ / Efra Cash MD / Efra Cash MD Interpreting Provider: Efra Cash MD Fluoroscopy 02/17/17 15:55 IMPRESSION: 1. ORIF of the oblique mid diaphyseal fracture of the right femur with improved alignment of the fracture fragments. D/ / 02/18/2017 05:57:51 Nicola Rush MD / dellyer Interpreting Provider: Nicola Rush MD Chest X-Ray 02/17/17 19:44 IMPRESSION: Minimal left retrocardiac opacity, likely postoperative atelectasis. Lungs are otherwise clear. D/ / Arden Lombardi MD / Arden Lombardi MD Interpreting Provider: Arden Lombardi MD - VTE Documentation of Mechanical Device: Intermittent pneumatic compression device Consult Discharge Plan - Plan Instructions: Laparoscopic Tubal Ligation (DC) Additional Instructions: Home Medication List * You have been given a list of your current medications. If you have changes in your medications, update your list. * Provide a list of current medications to your primary care physician. * Carry a copy of your current medications with you in case of an emergency. Referrals: Timmy Qiu MD [Primary Care Provider] - 05/14/17 8:45 am
[2017-02-19] MEDS: *HR* OxyCODONE Immed Rel 5 MG TABLET PO PRN (03:57)
[2017-02-19 05:44] LABS: Hematocrit 26.9 % (35.3-44.9); Hemoglobin 8.8 g/dL (11.5-15.4)
[2017-02-19 05:49] LABS: BUN/Creatinine Ratio 24 (6-26); Blood Urea Nitrogen 19 mg/dL (7-20); Calcium 8.5 mg/dL (8.6-10.8); Carbon Dioxide 23 mEq/L (19-29); Chloride 105 mEq/L (98-109); Glucose 106 mg/dL (70-99); Magnesium 2.1 mg/dL (1.6-2.6); Osmolality,Calculated 289 (280-300); Potassium 4.3 mEq/L (3.5-4.5); Sodium 138 mEq/L (136-145); eGFR For African Americans > 60 (> 60); eGFR For Non-African Americans > 60 (> 60)
[2017-02-19] MEDS: *HR* Enoxaparin 30 MG/0.3 ML SYRINGE SQ SCH ×2 (06:12→19:06)
[2017-02-19] MEDS: predniSONE 5 MG TABLET PO SCH ×2 (09:05→21:16)
[2017-02-19] MEDS: *HR* OxyCODONE/APAP 5/325 TABLET PO PRN ×3 (09:05→20:22)
[2017-02-19] MEDS: Folic Acid 1 MG TABLET PO SCH (09:06)
--- NOTE | 2017-02-19 14:26 | Orthopedics Progress Note ---
Date of Encounter: 02/19/17 Time of Encounter: 14:10 - Assessment and Plan (1) Fracture of shaft of right femur Current Visit: Yes Status: Acute POD#2 s/p right femur IM nailing Continue knee brace locked in extension. No knee flexion. NWB to RLE Pain control per hospitalist. Awaiting transportation to [facility]. Will follow up with Mariely Begum PA-C in [facility] office on 02/25/17 at 10:00 am. Qualifiers: Encounter type: initial encounter Fracture type: closed Fracture morphology: other fracture Qualified Code(s): S72.391A - Other fracture of shaft of right femur, initial encounter for closed fracture (2) Fracture of shaft of left radius Current Visit: Yes Status: Acute POD#1 s/p left radial shaft ORIF splint and sling to be left in place until follow up in office Continue to ice and elevate LUE. Continue ROM of fingers. NWB to LUE. Pain control per hospitalist. Will follow up with Mariely Begum PA-C in [facility] office on 02/25/17 at 10:00 am. Qualifiers: Encounter type: initial encounter Fracture type: closed Fracture morphology: other fracture Qualified Code(s): S52.392A - Other fracture of shaft of radius, left arm, initial encounter for closed fracture Subjective Principal diagnosis: POD#1 s/p right femur IM nailing, left radial shaft ORIF Interval history: Patient doing well today with no events overnight. States she has some pain in her right hip but no pain in her left wrist. Denies any numbness to extremities. Denies any calf pain. States she tried to do therapy today but she had to stop due to pain in hip. She thinks she will be able to go to [facility] today. Objective Vital signs: Vital Signs Temp Pulse Resp BP Pulse Ox 02/19/17 10:47 98.2 F 76 16 108/65 99 02/19/17 07:34 98.4 F 78 16 104/45 100 02/19/17 04:17 98.4 F 84 24 111/66 97 02/18/17 23:47 98.6 F 72 18 108/63 97 02/18/17 19:51 99.6 F 82 42 112/68 96 02/18/17 15:01 98.4 F 76 18 104/68 96 Intake and Output 02/18/17 02/19/17 02/19/17 23:59 07:59 15:59 Output Total 650 / 650 600 / 600 Balance -650 / -650 -600 / -600 Output: Catheter 650 / 650 600 / 600 Incision: clean and dry (dressings to LUE and RLE are intact and clean, brace to right knee locked in extension) - Labs CBC & BMP: 02/19/17 04:08 02/19/17 04:08 Labs: Abnormal lab results RBC 3.03 M/mcL (3.82-4.97) L 02/18/17 04:58 Hgb 8.8 g/dL (11.5-15.4) L 02/19/17 04:08 Hct 26.9 % (35.3-44.9) L 02/19/17 04:08 Glucose 106 mg/dL (70-99) H 02/19/17 04:08 Calcium 8.5 mg/dL (8.6-10.8) L 02/19/17 04:08 B-Natriuretic Peptide 181 pg/mL (0-100) H 02/17/17 04:10 Urine Ketones 40 mg/dL (Negative) H 02/16/17 22:50 Urine Blood Small (Negative) H 02/16/17 22:50 Urine Microscopic RBC 3-5 per hpf (0-3) H 02/16/17 22:50 Ur Squamous Epith Cells Moderate per lpf (None-Few) H 02/16/17 22:50 - VTE Documentation of Mechanical Device: Intermittent pneumatic compression device Consult Discharge Plan - Plan Instructions: Laparoscopic Tubal Ligation (DC) Additional Instructions: Home Medication List * You have been given a list of your current medications. If you have changes in your medications, update your list. * Provide a list of current medications to your primary care physician. * Carry a copy of your current medications with you in case of an emergency. Referrals: Timmy Qiu MD [Primary Care Provider] - 05/14/17 8:45 am
--- NOTE | 2017-02-19 17:22 | Internal Med Progress Note ---
Date of Encounter: 02/19/17 Time of Encounter: 11:15 - Assessment and plan (1) Fracture of shaft of right femur Current Visit: Yes Status: Acute Assessment and plan: Patient underwent right femur IM nailing. Appreciate orthopedic service input. knee brace to be locked in extension. NWB to RLE. PT/OT. awaiting rehab bed. Continue pain control with oral opiates. Qualifiers: Encounter type: initial encounter Fracture type: closed Fracture morphology: other fracture Qualified Code(s): S72.391A - Other fracture of shaft of right femur, initial encounter for closed fracture (2) Fracture of shaft of left radius Current Visit: Yes Status: Acute Assessment and plan: Patient underwent left radial shaft ORIF. Appreciate orthopedic service input. Continue pain medication. Qualifiers: Encounter type: initial encounter Fracture type: closed Fracture morphology: other fracture Qualified Code(s): S52.392A - Other fracture of shaft of radius, left arm, initial encounter for closed fracture (3) Acute blood loss anemia Current Visit: Yes Status: Acute Assessment and plan: secondary to right femur fracture. hgb is 8.8 from 11.9. close monitor of hgb. pt is hemodynamically stable. (4) Rheumatoid arthritis Current Visit: Yes Status: Chronic Assessment and plan: Continue home medications. Qualifiers: Rheumatoid arthritis location: multiple sites Rheumatoid factor presence: unspecified presence Qualified Code(s): M06.9 - Rheumatoid arthritis, unspecified - Subjective Interval history: patient reports pain is controlled with pain medications. - Constitutional Vitals: Temp Pulse Resp BP Pulse Ox 98.4 F 90 16 99/65 95 02/19/17 15:20 02/19/17 15:20 02/19/17 15:20 02/19/17 15:20 02/19/17 15:20 General appearance: Present: cooperative, A&O X 3, pleasant, no acute distress, answers questions appropriately - Neck Neck exam general surgery: Present: supple, trachea midline. Absent: lymphadenopathy - Respiratory Respiratory exam: Present: CTAB - Cardiovascular Cardiovascular exam: Present: RRR - GI/Abdominal GI/Abdominal exam: Present: normal bowel sounds, soft. Absent: distended, tenderness - Neurological Exam Neurological exam: Present: alert, oriented X3. Absent: facial droop, speech deficit Internal Medicine: Result - Labs CBC & Chem 7: 02/19/17 04:08 02/19/17 04:08 Labs: Short CBC 02/19/17 Range/Units 04:08 Hgb 8.8 L (11.5-15.4) g/dL Hct 26.9 L (35.3-44.9) % BMP 02/19/17 04:08 Sodium 138 Potassium 4.3 Chloride 105 Carbon Dioxide 23 BUN 19 Creatinine 0.80 Glucose 106 H Calcium 8.5 L - ABG Interpretation ABG results: PT/INR, D-dimer PT 10.6 Seconds (9.4-12.1) 02/16/17 18:19 - VTE Documentation of Mechanical Device: Intermittent pneumatic compression device Consult Discharge Plan - Plan Instructions: Laparoscopic Tubal Ligation (DC) Additional Instructions: Home Medication List * You have been given a list of your current medications. If you have changes in your medications, update your list. * Provide a list of current medications to your primary care physician. * Carry a copy of your current medications with you in case of an emergency. Referrals: Timmy Qiu MD [Primary Care Provider] - 05/14/17 8:45 am
[2017-02-20] MEDS: *HR* Enoxaparin 30 MG/0.3 ML SYRINGE SQ SCH (05:17)
[2017-02-20] MEDS: *HR* OxyCODONE/APAP 5/325 TABLET PO PRN ×3 (05:17→14:36)
[2017-02-20 05:25] LABS: BUN/Creatinine Ratio 29 (6-26); Blood Urea Nitrogen 21 mg/dL (7-20); Calcium 8.2 mg/dL (8.6-10.8); Carbon Dioxide 24 mEq/L (19-29); Chloride 106 mEq/L (98-109); Glucose 110 mg/dL (70-99); Magnesium 1.8 mg/dL (1.6-2.6); Osmolality,Calculated 290 (280-300); Potassium 4.2 mEq/L (3.5-4.5); Sodium 138 mEq/L (136-145); eGFR For African Americans > 60 (> 60); eGFR For Non-African Americans > 60 (> 60)
[2017-02-20 05:27] LABS: Hematocrit 24.5 % (35.3-44.9); Hemoglobin 8.3 g/dL (11.5-15.4)
--- NOTE | 2017-02-20 07:31 | Discharge Summary ---
Date of Encounter: 02/20/17 Time of Encounter: 07:26 - Discharge Diagnosis (1) Fracture of shaft of right femur Priority: Primary Status: Acute Qualifiers: Encounter type: initial encounter Fracture type: closed Fracture morphology: other fracture Qualified Code(s): S72.391A - Other fracture of shaft of right femur, initial encounter for closed fracture (2) Fracture of shaft of left radius Priority: Primary Status: Acute Qualifiers: Encounter type: initial encounter Fracture type: closed Fracture morphology: other fracture Qualified Code(s): S52.392A - Other fracture of shaft of radius, left arm, initial encounter for closed fracture (3) Acute blood loss anemia Priority: Primary Status: Acute (4) Rheumatoid arthritis Priority: Secondary Status: Chronic Qualifiers: Rheumatoid arthritis location: multiple sites Rheumatoid factor presence: unspecified presence Qualified Code(s): M06.9 - Rheumatoid arthritis, unspecified - Discharge Medications Prescriptions: OxyCODONE Immed Rel [Roxicodone 5 MG] 10 mg PO Q4HR PRN #14 tablet PRN Reason: Severe pain 7-10 OxyCODONE/APAP 5/325 [Percocet 5/325 MG] 1 each PO Q4HR PRN #20 tablet PRN Reason: moderate Pain 4-6 Enoxaparin [Lovenox] 30 mg SQ Q12HR 30 Days Calcium Carbonate/Vitamin D3 [Calcium 600-Vit D3 800 Tablet] 1 each PO DAILY # 30 tablet Ferrous Gluconate 324 mg PO DAILY #30 tablet Home Medications: Acetaminophen [Tylenol] 500 mg PO Q6HR PRN 02/16/17 [History] Ascorbate Calcium [Vitamin C] 500 mg PO DAILY 02/16/17 [History] Cholecalciferol (D-3) [Vitamin D] 1,000 unit PO DAILY 02/16/17 [History] Folic Acid 1 mg PO DAILY 02/16/17 [History] Methotrexate [Otrexup] 20 mg PO WE 02/16/17 [History] predniSONE [PredniSONE] 5 mg PO BID 02/16/17 [History] Atenolol [Tenormin] 12.5 mg PO DAILY #0 02/20/17 [Rx] Bisacodyl [Dulcolax] 10 mg RC DAILY PRN supp.rect 02/20/17 [Rx] Calcium Carbonate/Vitamin D3 [Calcium 600-Vit D3 800 Tablet] 1 each PO DAILY # 30 tablet 02/20/17 [Rx] Docusate [Colace] 100 mg PO BID capsule 02/20/17 [Rx] Enoxaparin [Lovenox] 30 mg SQ Q12HR 30 Days 02/20/17 [Rx] Ferrous Gluconate 324 mg PO DAILY #30 tablet 02/20/17 [Rx] OxyCODONE Immed Rel [Roxicodone 5 MG] 10 mg PO Q4HR PRN #14 tablet 02/20/17 [Rx] OxyCODONE/APAP 5/325 [Percocet 5/325 MG] 1 each PO Q4HR PRN #20 tablet 02/20/17 [Rx] OxyCODONE/APAP 5/325 [Percocet 5/325 MG] 1 each PO Q4HR PRN #20 tablet 02/20/17 [Rx] Allergies/Adverse Reactions: Allergies Penicillins [PCN] Allergy (Unknown, Verified 02/16/17 20:51) See Comments Patient unsure of reaction- aspirin [ASA] Adverse Reaction (Unknown, Verified 02/16/17 20:51) Gastrointestinal Upset acetaminophen [From [facility]] Adverse Reaction (Verified 02/16/17 20:51) Gastrointestinal Upset hydrocodone [From [facility]] Adverse Reaction (Verified 02/16/17 20:51) Gastrointestinal Upset Date of admission: 02/16/17 22:18 Primary care physician: Timmy Qiu MD Consults: 02/17/17 21:28 Consult to Occupational Therapy [CONS] Routine Comment: Evaluate, develop and implement POC Reason for Consult: Status post left radial shaft ORIF, nonweightbearing. Can remove sling for therapy. No elbow motion. May move shoulder and fingers. Consult to Orthopedic Navigator [CONS] [CONS] Routine Consult to Physical Therapy [CONS] Routine Comment: Evaluate, develop and implement POC Reason for Consult: Status post right femur mid shaft IM nailing, nonweightbearing Consult to Sugar Cane Grower [CONS] Routine Reason for SW Consult: Rehabilitation placement RT Post Op Consult [CONS] Routine - Patient Status Disposition: Transfer Inpatient Rehab Fac Condition: Good Functional capacity at discharge: uses cane/walker Overall status at discharge: patient is progressing back to baseline - Discharge Instructions Instructions: Laparoscopic Tubal Ligation (DC) Follow Up With: Timmy Qiu MD [Primary Care Provider] - 05/14/17 8:45 am Michael Esqueda MD [Partnered Physician] - (02/25 ) Additional Instructions: Home Medication List * You have been given a list of your current medications. If you have changes in your medications, update your list. * Provide a list of current medications to your primary care physician. * Carry a copy of your current medications with you in case of an emergency. - Diet and Activity Activity: as per physical therapy Diet: low fat, low cholesterol Interval History: Patient reports pain is well-controlled with medications. Hospital course: Ms. Taylor is a 81 year old female with past medical history rheumatoid arthritis who presented after falling at home. She was admitted with diagnosis of fracture of shaft of right femur and fracture of shaft of left radius. She underwent right femoral IM nailing and left radial shaft or IM without complications. Her postoperative course was complicated by acute blood loss anemia. Hemoglobin was down to 8.3 so she was transfused 1 unit of packed red blood cells. No external bleeding. She remained hemodynamically stable. PLAN: Patient was discharged to rehabilitation. DVT prophylaxis with Lovenox twice a day for 30 more days. Follow-up in the orthopedic clinic in one week. - Time Spent with Patient Total time spent providing and/or coordinating discharge services: - Constitutional Vitals: Temp Pulse Resp BP Pulse Ox 98 F 84 16 105/68 96 02/20/17 07:18 02/20/17 07:18 02/20/17 07:18 02/20/17 07:18 02/20/17 07:18 General appearance: Present: cooperative, A&O X 3, pleasant, no acute distress, answers questions appropriately - Neck Neck exam general surgery: Present: supple, trachea midline - Respiratory Respiratory exam: Present: CTAB - Cardiovascular Cardiovascular exam: Present: RRR - GI/Abdominal GI/Abdominal exam: Present: normal bowel sounds, soft. Absent: distended, tenderness - Extremities Exam Extremities exam: Absent: pedal edema Additional comments: Left arm on sling. - Back Exam Back exam: Absent: CVA tenderness (L), CVA tenderness (R) - Neurological Exam Neurological exam: Present: alert, oriented X3, no focal deficits, strengths equal and symetr throughout. Absent: facial droop, speech deficit - VTE Documentation of Mechanical Device: Venous foot pump, device
--- NOTE | 2017-02-20 07:34 | Physician Discharge Referral ---
ExtendedCare Referral Info Transfer To: [facility] Provider in Charge: milton Provider in Charge after Transfer: PCP Institutional Level of Care: Skilled - Diagnosis (1) Fracture of shaft of right femur Status: Acute (2) Fracture of shaft of left radius Status: Acute (3) Acute blood loss anemia Status: Acute (4) Rheumatoid arthritis Status: Chronic - Transfer Medications Prescriptions: OxyCODONE Immed Rel [Roxicodone 5 MG] 10 mg PO Q4HR PRN #14 tablet PRN Reason: Severe pain 7-10 OxyCODONE/APAP 5/325 [Percocet 5/325 MG] 1 each PO Q4HR PRN #20 tablet PRN Reason: moderate Pain 4-6 Enoxaparin [Lovenox] 30 mg SQ Q12HR 30 Days Calcium Carbonate/Vitamin D3 [Calcium 600-Vit D3 800 Tablet] 1 each PO DAILY # 30 tablet Ferrous Gluconate 324 mg PO DAILY #30 tablet Home Medications: Acetaminophen [Tylenol] 500 mg PO Q6HR PRN 02/16/17 [History] Ascorbate Calcium [Vitamin C] 500 mg PO DAILY 02/16/17 [History] Cholecalciferol (D-3) [Vitamin D] 1,000 unit PO DAILY 02/16/17 [History] Folic Acid 1 mg PO DAILY 02/16/17 [History] Methotrexate [Otrexup] 20 mg PO WE 02/16/17 [History] predniSONE [PredniSONE] 5 mg PO BID 02/16/17 [History] Atenolol [Tenormin] 12.5 mg PO DAILY #0 02/20/17 [Rx] Bisacodyl [Dulcolax] 10 mg RC DAILY PRN supp.rect 02/20/17 [Rx] Calcium Carbonate/Vitamin D3 [Calcium 600-Vit D3 800 Tablet] 1 each PO DAILY # 30 tablet 02/20/17 [Rx] Docusate [Colace] 100 mg PO BID capsule 02/20/17 [Rx] Enoxaparin [Lovenox] 30 mg SQ Q12HR 30 Days 02/20/17 [Rx] Ferrous Gluconate 324 mg PO DAILY #30 tablet 02/20/17 [Rx] OxyCODONE Immed Rel [Roxicodone 5 MG] 10 mg PO Q4HR PRN #14 tablet 02/20/17 [Rx] OxyCODONE/APAP 5/325 [Percocet 5/325 MG] 1 each PO Q4HR PRN #20 tablet 02/20/17 [Rx] OxyCODONE/APAP 5/325 [Percocet 5/325 MG] 1 each PO Q4HR PRN #20 tablet 02/20/17 [Rx] Allergies/Adverse Reactions: Allergies Penicillins [PCN] Allergy (Unknown, Verified 02/16/17 20:51) See Comments Patient unsure of reaction- aspirin [ASA] Adverse Reaction (Unknown, Verified 02/16/17 20:51) Gastrointestinal Upset acetaminophen [From [place]] Adverse Reaction (Verified 02/16/17 20:51) Gastrointestinal Upset hydrocodone [From [place]] Adverse Reaction (Verified 02/16/17 20:51) Gastrointestinal Upset - Respiratory Orders Smoking Cessation: Smoking cessation has been advised. For more information, call the [place] Tobacco Quit Line at 2-555-ARTM-NOW. - Lab Orders Lab Orders: CBC (in 1 week), Other (include drug levels w/frequency) - Advance Directives Code Status: Full Code - Mobility Orders Ambulate - Rehabiliation Orders Rehab Potential: Good Rehab Orders: Evaluation for Physical Therapy, Evaluation for Occupational Therapy - Treatments Skin tear care topically daily PRN per policy, May check for fecal impaction rectally daily PRN, Fleet enema rectally every other day PRN cleansing purposes - Diet Orders Cardiac CERTIFICATION: I certify that the transfer of the above named patient to an Extended Care Facility is necessary for the continuing treatment of the diagnosis listed. The above information is true and accurate reflection of patient's current condition. Confidential - Redisclosure prohibited without a patient's written consent.
[2017-02-20] MEDS ORDERED: Bisacodyl 10 MG RECTAL SUPPOSITORY RC SCH (09:00)
[2017-02-20] MEDS: predniSONE 5 MG TABLET PO SCH (09:09)
[2017-02-20] MEDS: Folic Acid 1 MG TABLET PO SCH (09:09)
[2017-02-20] MEDS ORDERED: 0.9 % Sodium Chloride 250 ML ONE (09:55)
[2017-02-20 13:08] VITALS: BP 121/66
== END 2017-02-20 15:30 | DRG 481 ==
LOC: 3NENU 18:14 → EMEROO 18:14 → 3NENU 21:30 → SUATTDRO 22:18
PROVIDERS: ADMIT Hospitalist; ATTEND Internal Medicine

== ENCOUNTER 2021-06-12 08:59 | Inpatient (IN) ==
[2021-06-12] MEDS ORDERED: 0.9 % Sodium Chloride 1,000 ML IVC ONE (09:23)
[2021-06-12 09:58] LABS: Basophils % 0.5 %; Eosinophils # 0.1 K/mcL (0.0-0.6); Eosinophils % 0.6 %; Hematocrit 32.1 % (35.3-44.9); Hemoglobin 10.5 g/dL (11.5-15.4); Immature Granulocytes % 0.4 % (0-4); Lymphocytes # 1.2 K/mcL (0.6-4.6); Lymphocytes % 15.3 %; Mean Corpuscular HGB Conc 32.7 g/dL (31.6-35.5); Mean Corpuscular Hemoglobin 30.1 pg (28.0-33.3); Mean Platelet Volume 9.7 fL (9.4-12.4); Monocytes # 0.9 K/mcL (0.0-1.3); Monocytes % 11.8 %; Neutrophils # 5.6 K/mcL (1.6-8.9); Platelet Count 223 K/mcL (140-400); Red Blood Count 3.49 M/mcL (3.82-4.97); Red Cell Distribution Width 13.8 % (11.5-14.5); Segmented Neutrophils % 71.4 %; White Blood Count 7.9 K/mcL (4.3-11.1)
[2021-06-12 10:06] LABS: INR 1.2; Prothrombin Time 13.7 Seconds (9.4-12.1)
[2021-06-12 10:08] LABS: Activated Partial Thrombo Time 23.1 Seconds (26.0-36.0)
[2021-06-12 10:19] LABS: BUN/Creatinine Ratio 21 (6-26); Bilirubin,Direct 0.3 mg/dL (0.0-0.2); Bilirubin,Total 1.4 mg/dL (0.3-1.0); Blood Urea Nitrogen 16 mg/dL (8-23); Calcium 8.8 mg/dL (8.6-10.3); Carbon Dioxide 22 mEq/L (23-29); Chloride 103 mEq/L (98-107); Glucose 91 mg/dL (70-105); Osmolality,Calculated 281 (280-300); Potassium 4.1 mEq/L (3.5-5.1); Sodium 135 mEq/L (136-145); eGFR For African Americans > 60 (> 60); eGFR For Non-African Americans > 60 (> 60)
[2021-06-12 10:20] LABS: Alanine Aminotransferase 6 Units/L (7-52); Albumin 3.9 g/dL (3.5-5.7); Albumin/Globulin Ratio 1.4 (1.1-2.2); Alkaline Phosphatase 82 Units/L (34-104); Aspartate Amino Transferase 13 Units/L (13-39); Bilirubin,Indirect 1.1 mg/dL (0.0-1.0); Globulin 2.7 g/dL (2.4-3.5); Total Protein 6.6 g/dL (6.4-8.9)
[2021-06-12 10:26] LABS: Bilirubin,Urine Negative (Negative); Blood,Urine Negative (Negative); Clarity,Urine Clear (Clear); Color,Urine Yellow (Yellow); Glucose,Urine (UA) Normal (Normal); Ketones,Urine Trace mg/dL (Negative); Leukocyte Esterase,Urine Large (Negative); Mucus,Urine Few per lpf (None-Few); Nitrite,Urine Negative (Negative); Protein,Urine Trace mg/dL (Neg-Trace); Renal Epithelial Cells,Urine Few per hpf (None-Few); Specific Gravity,Urine 1.015 (1.010-1.025); Squamous Epithelial Cell,Urine Few per hpf (None-Few); Transitional Epi Cells,Urine Few per hpf (None-Few); Urobilinogen,Urine Normal (Normal); WBC,Urine 30-50 per hpf (0-3)
[2021-06-12 10:27] LABS: Troponin I < 0.03 ng/mL (< 0.04)
[2021-06-12 10:35] LABS: Amphetamine Screen,Urine Negative ng/mL (Cutoff=1000); Barbiturate Screen,Urine Negative ng/mL (Cutoff=200); Benzodiazepines Screen,Urine Negative ng/mL (Cutoff=200); Cannabinoid Screen,Urine Negative ng/mL (Cutoff = 50); Cocaine Screen,Urine Negative ng/mL (Cutoff= 300); Opiate Screen,Urine Negative ng/mL (Cutoff=300); Phencyclidine Screen,Urine Negative ng/mL (Cutoff=25)
[2021-06-12] MEDS ORDERED: cefTRIAXone 1,000 MG in Water for inj. (sterile) 10 ML IVP ONE (10:46)
[2021-06-12] MEDS ORDERED: Naloxone 0.4 MG/ML INJ IVP PRN (11:24)
[2021-06-12] MEDS ORDERED: Ondansetron 4 MG/2 ML VIAL IVP PRN (11:24)
[2021-06-12] MEDS ORDERED: Isovue-370 500 ML BOTTLE IVP ONE (11:26)
[2021-06-12 11:48] LABS: Influenza A PCR Negative (Negative); Influenza B PCR Negative (Negative); Resp. Syncytial Virus PCR Negative (Negative); SARS-CoV-2 by PCR (In House) Negative (Negative)
[2021-06-12] MEDS: Acetaminophen 325 MG TABLET PO PRN (22:17)
[2021-06-13 02:44] LABS: Basophils % 0.4 %; Eosinophils % 0.3 %; Hemoglobin 11.1 g/dL (11.5-15.4); Immature Granulocytes % 0.3 % (0-4); Immature Platelets 5.1 % (1.1-6.1); Lymphocytes # 1.6 K/mcL (0.6-4.6); Mean Corpuscular HGB Conc 32.6 g/dL (31.6-35.5); Mean Corpuscular Hemoglobin 29.8 pg (28.0-33.3); Mean Corpuscular Volume 91.2 fL (83.0-100.0); Monocytes # 1.1 K/mcL (0.0-1.3); Monocytes % 12.2 %; Neutrophils # 6.2 K/mcL (1.6-8.9); Platelet Count 187 K/mcL (140-400); Red Blood Count 3.73 M/mcL (3.82-4.97); Red Cell Distribution Width 13.6 % (11.5-14.5); Segmented Neutrophils % 68.8 %
[2021-06-13 03:01] LABS: Platelet Estimate Normal (Normal)
[2021-06-13 03:05] LABS: Iron 21 mcg/dL (50-170)
[2021-06-13 03:06] LABS: BUN/Creatinine Ratio 25 (6-26); Blood Urea Nitrogen 18 mg/dL (8-23); Calcium 8.9 mg/dL (8.6-10.3); Carbon Dioxide 21 mEq/L (23-29); Chloride 105 mEq/L (98-107); Glucose 86 mg/dL (70-105); Osmolality,Calculated 285 (280-300); Phosphorous 4.2 mg/dL (2.7-4.5); Sodium 137 mEq/L (136-145); eGFR For African Americans > 60 (> 60); eGFR For Non-African Americans > 60 (> 60)
[2021-06-13 03:17] LABS: Thyroid Stimulating Hormone 2.121 mcIU/mL (0.340-5.600)
[2021-06-13 03:21] LABS: Ferritin 448 ng/mL (10-120)
[2021-06-13 03:26] LABS: Folate 17.1 ng/mL (3.0-16.0)
[2021-06-13 04:48] LABS: % Iron Saturation 7 % (15-50); Transferrin 214 mg/dL (203-362)
[2021-06-13] MEDS ORDERED: *HR* Enoxaparin 40 MG/0.4 ML SYRINGE SQ SCH (06:00)
[2021-06-13] MEDS ORDERED: cefTRIAXone 1,000 MG in Water for inj. (sterile) 10 ML IVP SCH (09:00)
[2021-06-13] MEDS ORDERED: cefTRIAXone 1,000 MG in Water for inj. (sterile) 10 ML IVP ONE (10:11)
[2021-06-13] MEDS: Acyclovir 500 MG in D5% in Water 100 ML IVPB SCH ×2 (12:03→17:12)
[2021-06-13 14:19] LABS: Red Blood Cell,CSF < 2000 RBC/mcL
[2021-06-13] MEDS: TRIMETH IVPB SCH ×2 (14:40→22:51)
[2021-06-13] MEDS: D5 IVPB SCH ×2 (14:40→22:51)
[2021-06-13] MEDS: WATER IVPB SCH ×2 (14:40→22:51)
[2021-06-13] MEDS: SULFAMETHOXAZOLE IVPB SCH ×2 (14:40→22:51)
[2021-06-13 14:54] LABS: Basophils,CSF 0 %; Eosinophils,CSF 0 %
[2021-06-13 14:55] LABS: Appearance,CSF Clear (Clear)
[2021-06-13 15:04] LABS: Glucose,CSF 57 mg/dL (40-70); Total Protein,CSF 89 mg/dL (15-45)
[2021-06-13] MEDS ORDERED: D5 IVPB SCH (16:00)
[2021-06-13] MEDS ORDERED: Acyclovir 500 MG in D5% in Water 100 ML IVPB SCH (16:00)
[2021-06-13] MEDS ORDERED: WATER IVPB SCH (16:00)
[2021-06-13] MEDS ORDERED: TRIMETH IVPB SCH (16:00)
[2021-06-13] MEDS ORDERED: SULFAMETHOXAZOLE IVPB SCH (16:00)
[2021-06-13] MEDS ORDERED: levETIRAcetam 250 MG TABLET PO STA (17:02)
[2021-06-13] MEDS: cefTRIAXone 2,000 MG in 0.9 % Sodium Chloride Mini Bag 100 ML IVPB SCH (20:55)
[2021-06-13] MEDS: atenoloL 50 MG TABLET PO SCH (20:55)
[2021-06-14 02:06] LABS: Hematocrit 30.6 % (35.3-44.9); Hemoglobin 10.3 g/dL (11.5-15.4); Mean Corpuscular HGB Conc 33.7 g/dL (31.6-35.5); Mean Corpuscular Hemoglobin 30.4 pg (28.0-33.3); Mean Corpuscular Volume 90.3 fL (83.0-100.0); Mean Platelet Volume 9.9 fL (9.4-12.4); Platelet Count 236 K/mcL (140-400); Red Blood Count 3.39 M/mcL (3.82-4.97); Red Cell Distribution Width 13.5 % (11.5-14.5)
[2021-06-14 02:14] LABS: INR 1.2; Prothrombin Time 14.3 Seconds (9.4-12.1)
[2021-06-14 02:17] LABS: Activated Partial Thrombo Time 25.4 Seconds (26.0-36.0)
[2021-06-14 02:26] LABS: Alanine Aminotransferase 6 Units/L (7-52); Albumin 3.5 g/dL (3.5-5.7); Albumin/Globulin Ratio 1.3 (1.1-2.2); Alkaline Phosphatase 75 Units/L (34-104); Aspartate Amino Transferase 12 Units/L (13-39); BUN/Creatinine Ratio 20 (6-26); Bilirubin,Total 0.5 mg/dL (0.3-1.0); Blood Urea Nitrogen 14 mg/dL (8-23); Calcium 8.2 mg/dL (8.6-10.3); Carbon Dioxide 19 mEq/L (23-29); Chloride 98 mEq/L (98-107); Chol/HDL Ratio 3.1 (0-4.9); Cholesterol 122 mg/dL (< 200); Globulin 2.8 g/dL (2.4-3.5); Glucose 174 mg/dL (70-105); HDL Cholesterol 40 mg/dL (40-59); LDL Cholesterol,Calculated 69 mg/dL (< 100); Osmolality,Calculated 273 (280-300); Potassium 3.4 mEq/L (3.5-5.1); Sodium 129 mEq/L (136-145); Total Protein 6.3 g/dL (6.4-8.9); Triglycerides 63 mg/dL (< 150); eGFR For African Americans > 60 (> 60); eGFR For Non-African Americans > 60 (> 60)
[2021-06-14 02:56] LABS: Estimated Average Glucose 114 mg/dl; Hemoglobin A1C 5.6 %
[2021-06-14] MEDS: Acyclovir 500 MG in D5% in Water 100 ML IVPB SCH ×2 (03:07→10:07)
[2021-06-14] MEDS ORDERED: Perflutren Lipid Microsphere 1.3 ML in 0.9 % Sodium Chloride 8.7 ML IVP PRN (03:59)
[2021-06-14] MEDS ORDERED: Potassium Chloride 20 MEQ, Lidocaine 1% 2 ML in 0.9 % Sodium Chloride 250 ML IVPB ONE (04:06)
[2021-06-14] MEDS: SULFAMETHOXAZOLE IVPB SCH ×2 (08:15→16:19)
[2021-06-14] MEDS: TRIMETH IVPB SCH ×2 (08:15→16:19)
[2021-06-14] MEDS: D5 IVPB SCH ×2 (08:15→16:19)
[2021-06-14] MEDS: WATER IVPB SCH ×2 (08:15→16:19)
[2021-06-14] MEDS: predniSONE 10 MG TABLET PO SCH (09:58)
[2021-06-14] MEDS: Folic Acid 1 MG TABLET PO SCH (09:58)
[2021-06-14] MEDS: levETIRAcetam 250 MG TABLET PO SCH ×2 (09:58→23:12)
[2021-06-14] MEDS: atenoloL 50 MG TABLET PO SCH ×2 (09:58→23:12)
[2021-06-14] MEDS ORDERED: Saliva Stimulant 44.3ml BOTTLE PO PRN (11:09)
[2021-06-14] MEDS: cefTRIAXone 2,000 MG in 0.9 % Sodium Chloride Mini Bag 100 ML IVPB SCH ×2 (11:59→23:12)
[2021-06-14] MEDS: Acetaminophen 325 MG TABLET PO PRN (14:40)
[2021-06-15] MEDS: Acyclovir 500 MG in D5% in Water 100 ML IVPB SCH ×3 (00:56→22:08)
[2021-06-15] MEDS: SULFAMETHOXAZOLE IVPB SCH (02:24)
[2021-06-15] MEDS: WATER IVPB SCH (02:24)
[2021-06-15] MEDS: D5 IVPB SCH (02:24)
[2021-06-15] MEDS: TRIMETH IVPB SCH (02:24)
[2021-06-15 07:02] LABS: Hematocrit 31.4 % (35.3-44.9); Hemoglobin 10.4 g/dL (11.5-15.4); Mean Corpuscular HGB Conc 33.1 g/dL (31.6-35.5); Mean Corpuscular Hemoglobin 30.2 pg (28.0-33.3); Mean Corpuscular Volume 91.3 fL (83.0-100.0); Mean Platelet Volume 10.1 fL (9.4-12.4); Platelet Count 257 K/mcL (140-400); Red Blood Count 3.44 M/mcL (3.82-4.97); Red Cell Distribution Width 13.7 % (11.5-14.5); White Blood Count 10.8 K/mcL (4.3-11.1)
[2021-06-15 07:25] LABS: BUN/Creatinine Ratio 18 (6-26); Blood Urea Nitrogen 12 mg/dL (8-23); Calcium 8.6 mg/dL (8.6-10.3); Carbon Dioxide 21 mEq/L (23-29); Chloride 99 mEq/L (98-107); Glucose 79 mg/dL (70-105); Osmolality,Calculated 269 (280-300); Potassium 3.8 mEq/L (3.5-5.1); Sodium 130 mEq/L (136-145); eGFR For African Americans > 60 (> 60); eGFR For Non-African Americans > 60 (> 60)
[2021-06-15] MEDS: atenoloL 50 MG TABLET PO SCH ×2 (09:12→22:07)
[2021-06-15] MEDS: levETIRAcetam 250 MG TABLET PO SCH ×2 (09:12→22:07)
[2021-06-15] MEDS: predniSONE 10 MG TABLET PO SCH (09:12)
[2021-06-15] MEDS: Folic Acid 1 MG TABLET PO SCH (09:12)
[2021-06-15] MEDS ORDERED: WATER IVPB SCH (10:00)
[2021-06-15] MEDS ORDERED: D5 IVPB SCH (10:00)
[2021-06-15] MEDS ORDERED: TRIMETH IVPB SCH (10:00)
[2021-06-15] MEDS ORDERED: SULFAMETHOXAZOLE IVPB SCH (10:00)
[2021-06-15] MEDS: cefTRIAXone 2,000 MG in 0.9 % Sodium Chloride Mini Bag 100 ML IVPB SCH (10:18)
[2021-06-15] MEDS: Acetaminophen 325 MG TABLET PO PRN (16:09)
[2021-06-16] MEDS: Folic Acid 1 MG TABLET PO SCH (08:38)
[2021-06-16] MEDS: levETIRAcetam 250 MG TABLET PO SCH ×2 (08:38→20:46)
[2021-06-16] MEDS: atenoloL 50 MG TABLET PO SCH ×2 (08:39→20:46)
[2021-06-16] MEDS: predniSONE 10 MG TABLET PO SCH (08:39)
[2021-06-16] MEDS: Acyclovir 500 MG in D5% in Water 100 ML IVPB SCH ×2 (11:25→22:45)
[2021-06-17 01:12] LABS: HSV Source CSF
[2021-06-17] MEDS: predniSONE 10 MG TABLET PO SCH (08:52)
[2021-06-17] MEDS: levETIRAcetam 250 MG TABLET PO SCH ×2 (08:52→20:15)
[2021-06-17] MEDS: atenoloL 50 MG TABLET PO SCH ×2 (08:52→20:15)
[2021-06-17] MEDS: Folic Acid 1 MG TABLET PO SCH (08:52)
[2021-06-17] MEDS: Acyclovir 500 MG in D5% in Water 100 ML IVPB SCH (09:38)
[2021-06-17 11:58] LABS: Hematocrit 33.6 % (35.3-44.9); Hemoglobin 11.2 g/dL (11.5-15.4); Mean Corpuscular HGB Conc 33.3 g/dL (31.6-35.5); Mean Corpuscular Hemoglobin 29.9 pg (28.0-33.3); Mean Corpuscular Volume 89.8 fL (83.0-100.0); Mean Platelet Volume 9.5 fL (9.4-12.4); Platelet Count 312 K/mcL (140-400); Red Blood Count 3.74 M/mcL (3.82-4.97); Red Cell Distribution Width 13.8 % (11.5-14.5); White Blood Count 7.6 K/mcL (4.3-11.1)
[2021-06-17 12:20] LABS: BUN/Creatinine Ratio 23 (6-26); Blood Urea Nitrogen 18 mg/dL (8-23); Calcium 8.6 mg/dL (8.6-10.3); Carbon Dioxide 24 mEq/L (23-29); Chloride 100 mEq/L (98-107); Glucose 122 mg/dL (70-105); Osmolality,Calculated 279 (280-300); Potassium 3.9 mEq/L (3.5-5.1); Sodium 133 mEq/L (136-145); eGFR For African Americans > 60 (> 60); eGFR For Non-African Americans > 60 (> 60)
[2021-06-17 16:41] LABS: West Nile Virus PCR Source CSF
[2021-06-18 04:57] LABS: Hematocrit 37.9 % (35.3-44.9); Hemoglobin 12.5 g/dL (11.5-15.4); Mean Corpuscular Hemoglobin 30.2 pg (28.0-33.3); Mean Corpuscular Volume 91.5 fL (83.0-100.0); Mean Platelet Volume 9.8 fL (9.4-12.4); Platelet Count 333 K/mcL (140-400); Red Blood Count 4.14 M/mcL (3.82-4.97); Red Cell Distribution Width 13.9 % (11.5-14.5)
[2021-06-18 05:20] LABS: BUN/Creatinine Ratio 28 (6-26); Blood Urea Nitrogen 24 mg/dL (8-23); Carbon Dioxide 24 mEq/L (23-29); Chloride 98 mEq/L (98-107); Glucose 91 mg/dL (70-105); Osmolality,Calculated 280 (280-300); Potassium 4.5 mEq/L (3.5-5.1); Sodium 133 mEq/L (136-145); eGFR For African Americans > 60 (> 60); eGFR For Non-African Americans > 60 (> 60)
[2021-06-18] MEDS: levETIRAcetam 250 MG TABLET PO SCH ×2 (09:23→19:39)
[2021-06-18] MEDS: Folic Acid 1 MG TABLET PO SCH (09:23)
[2021-06-18] MEDS: atenoloL 50 MG TABLET PO SCH ×2 (09:23→19:39)
[2021-06-18] MEDS: predniSONE 10 MG TABLET PO SCH (09:23)
[2021-06-18 10:10] LABS: QuantiFERON Mitogen minus NIL 9.29 IU/mL
[2021-06-18 11:08] LABS: QuantiFERON NIL 0.04 IU/mL; QuantiFERON-TB Gold In-Tube NEGATIVE (Negative)
[2021-06-19 02:37] LABS: Hematocrit 38.7 % (35.3-44.9); Hemoglobin 12.6 g/dL (11.5-15.4); Mean Corpuscular HGB Conc 32.6 g/dL (31.6-35.5); Mean Corpuscular Hemoglobin 29.8 pg (28.0-33.3); Mean Corpuscular Volume 91.5 fL (83.0-100.0); Mean Platelet Volume 9.8 fL (9.4-12.4); Platelet Count 343 K/mcL (140-400); Red Blood Count 4.23 M/mcL (3.82-4.97); Red Cell Distribution Width 13.9 % (11.5-14.5); White Blood Count 10.8 K/mcL (4.3-11.1)
[2021-06-19 02:47] LABS: Calcium 9.5 mg/dL (8.6-10.3); Potassium 4.5 mEq/L (3.5-5.1)
[2021-06-19] MEDS: Folic Acid 1 MG TABLET PO SCH (07:55)
[2021-06-19] MEDS: levETIRAcetam 250 MG TABLET PO SCH ×2 (07:55→20:03)
[2021-06-19] MEDS: predniSONE 10 MG TABLET PO SCH (07:55)
[2021-06-19] MEDS: atenoloL 50 MG TABLET PO SCH (07:55)
[2021-06-19] MEDS ORDERED: 0.9 % Sodium Chloride 500 ML IV ONE (10:55)
[2021-06-19 11:19] LABS: Brucella Antibody Total <1:20 (<1:20); California Encephalitis IgM < 1:16 (< 1:16); E.Equine Encephalitis IgM < 1:16 (< 1:16); St. Louis Encephalitis IgM < 1:16 (< 1:16); W.Equine Encephalitis IgM < 1:16 (< 1:16)
[2021-06-19] MEDS ORDERED: *HR* Methotrexate 2.5 MG TABLET PO SCH (15:19)
[2021-06-20 04:22] LABS: Hematocrit 35.1 % (35.3-44.9); Hemoglobin 11.5 g/dL (11.5-15.4); Mean Corpuscular HGB Conc 32.8 g/dL (31.6-35.5); Mean Corpuscular Hemoglobin 30.2 pg (28.0-33.3); Mean Corpuscular Volume 92.1 fL (83.0-100.0); Mean Platelet Volume 9.6 fL (9.4-12.4); Platelet Count 270 K/mcL (140-400); Red Blood Count 3.81 M/mcL (3.82-4.97); Red Cell Distribution Width 13.9 % (11.5-14.5); White Blood Count 10.9 K/mcL (4.3-11.1)
[2021-06-20 05:16] LABS: BUN/Creatinine Ratio 45 (6-26); Blood Urea Nitrogen 44 mg/dL (8-23); Carbon Dioxide 26 mEq/L (23-29); Chloride 102 mEq/L (98-107); Glucose 106 mg/dL (70-105); Osmolality,Calculated 296 (280-300); Potassium 4.1 mEq/L (3.5-5.1); Sodium 137 mEq/L (136-145); eGFR For African Americans > 60 (> 60); eGFR For Non-African Americans 54 (> 60)
[2021-06-20] MEDS: Folic Acid 1 MG TABLET PO SCH (08:11)
[2021-06-20] MEDS: predniSONE 10 MG TABLET PO SCH (08:11)
[2021-06-20] MEDS: levETIRAcetam 250 MG TABLET PO SCH ×2 (08:11→20:34)
[2021-06-20] MEDS ORDERED: atenoloL 50 MG TABLET PO SCH (09:00)
[2021-06-20] MEDS ORDERED: atenoloL 25 MG TABLET PO SCH (09:00)
[2021-06-20 19:44] VITALS: BP 107/66; PULSE 81; TEMP 98; O2SAT 98
== END 2021-06-20 22:45 | DRG 97 ==
LOC: EMEROOARM 08:59 → 3ANU 08:59 → SUATTDRO 13:28 → 3ANU 14:42 → SUATTDRO 06-13 15:42
PROVIDERS: ADMIT Internal Medicine; ATTEND Internal Medicine